=== PATIENT | male | born 1940 | race Caucasian/White ===

== ENCOUNTER 2016-08-04 12:05 | Observation (INO) | payer MEDICARE, OTHER ==
[2016-08-04] MEDS ORDERED: Sodium Chloride 0.9% 10 ML Syringe FLUSH PRN (12:14)
[2016-08-04] MEDS ORDERED: Sodium Chloride 0.9% 2.5 ML Syringe FLUSH PRN (12:14)
[2016-08-04] MEDS ORDERED: 50% Dextrose in Water 50 ML Syringe ONE (12:19)
--- NOTE | 2016-08-04 12:20 | EDM.PDOC ---
ED HPI GENERAL MEDICAL PROBLEM - General Stated Complaint: VERY WEAK/ICE COLD Time Seen by Provider: 08/04/16 12:08 - History of Present Illness INITIAL COMMENTS - FREE TEXT/NARRATIVE: HISTORY AND PHYSICAL: History of present illness: The patient is a 75-year-old male with a history of asthma who follows at [facility] and presents with complaints of feeling "weak in his head" on and off for the last several months. The patient is very vague about his symptoms and says he feels somewhat lightheaded and short of breath with these symptoms but he cannot give me a frequency that it occurs and he has no associated chest pain abdominal pain vomiting fever chills diarrhea or focal weakness in any part of his body. Patient was seen yesterday by Dr. Colbert at [facility] any testing today on his carotids at [facility] and according to the computer he has an MRI scheduled tomorrow here. According to the patient in the ED he says that when he is up moving around he feels more short of breath but has no chest pain and he still feels very weak in his head but no focal weakness. He feels some tingling in his legs but again no weakness. Just laying at rest patient feels improved but still feels somewhat short of breath. He's had no flulike symptoms and has been eating and drinking normally. He complains of some posterior neck pain which is achy in character but no back pain. On my evaluation I asked him what year it was and he said 2009 and what day the week he was in he said Wednesday last Wednesday. According to the this is new since that he just arrived. Review of systems: As per history of present illness and below otherwise all systems reviewed and negative. Past medical history: As per history of present illness and as reviewed below otherwise noncontributory. Surgical history: As per history of present illness and as reviewed below otherwise noncontributory. Social history: No reported history of drug or alcohol abuse. Family history: As per history of present illness and as reviewed below otherwise noncontributory. Physical exam: General: Well-developed thin man who is nontoxic and vital signs have been reviewed by me. Patient ambulated back to the ED without assistance HEENT: Atraumatic, normocephalic, pupils reactive, negative for conjunctival pallor or scleral icterus, mucous membranes moist, throat clear, neck supple, nontender, trachea midline. Lungs: Clear to auscultation, breath sounds equal bilaterally, chest nontender. No work or breathing or sensory muscle use Heart: S1S2, regular rhythm and bradycardic rate, negative for clicks, rubs, or JVD. Abdomen: Soft, nondistended, nontender. Negative for masses or hepatosplenomegaly. Negative for costovertebral tenderness. Pelvis: Stable nontender. Genitourinary: Deferred. Rectal: Deferred. Extremities: Atraumatic, negative for cords or calf pain. Neurovascular unremarkable. No pedal edema Neuro: Awake, alert, oriented to person place but not to time as he was unable to tell me the appropriate year or day of the week. Cranial nerves II through XII unremarkable. Cerebellum unremarkable. Motor and sensory unremarkable throughout. Exam nonfocal. Patient has no slurred speech and a strong throughout all of his extremities with no drift. Dorsi and plantar flexion are intact 5/5 inclusive of the great toe Diagnostics: EKG x 2, CBC CMP INR TSH troponin UA CT scan of the head NIHSS Therapeutics: IV O2 monitor aspirin 1231: I discussed the case with Dr. Aristides Coppola who saw the patient yesterday in his clinic. He said the patient's heart rate was 70 at that time but he did not do an EKG. He said he ordered a carotid studies and the MRI because the patient was exhibiting symptoms of TIAs/episodic confusion and he went to work it out. He said that he does not have the results of the carotids at this time. NIHSS = 1, he had disorientation with time 1405: Case was discussed with Dr. George who accepts the patient for observation admission and I also discussed all testing results with the patient and at bedside and he is agreeable for observation. I've also shown these 2 EKGs to our gas operations analyst . he says that he is unavailable for formal consultation but at this time is not worried from what he has seen. Impression: Episodic confusion and weakness etiology unclear Definitive disposition and diagnosis as appropriate pending reevaluation and review of above. - Related Data Allergies Allergy/AdvReac Type Severity Reaction Status Date / Time No Known Allergies Allergy Verified 08/04/16 12:58 ED ROS GENERAL - Review of Systems Review Of Systems: ROS reveals no pertinent complaints other than HPI. ED EXAM, GENERAL - Physical Exam Exam: See Below (See dictation) Course - Vital Signs Last Recorded V/S: Last Vital Signs Temp 36.5 C 08/04/16 12:54 Pulse 50 L 08/04/16 12:54 Resp 18 08/04/16 12:54 BP 134/79 08/04/16 12:54 Pulse Ox 99 08/04/16 12:54 - Orders/Labs/Meds Orders: Active Orders 24 hr Category Date Time Status Blood Glucose Check, Bedside [RC] ONETIME Care 08/04/16 12:14 Active Cardiac Monitoring [RC] . DIRECTED Care 08/04/16 12:14 Active Communication Order [RC] STAT Care 08/04/16 12:15 Active EKG Documentation Completion [RC] STAT Care 08/04/16 12:14 Active EKG Documentation Completion [RC] STAT Care 08/04/16 13:09 Active Oxygen Therapy, ED [RC] ASDIRECTED Care 08/04/16 12:14 Active Pulse Oximetry [RC] ASDIRECTED Care 08/04/16 12:14 Active Sodium Chloride 0.9% [Saline Flush] Med 08/04/16 12:14 Active 10 ml FLUSH ASDIRECTED PRN Sodium Chloride 0.9% [Saline Flush] Med 08/04/16 12:14 Active 2.5 ml FLUSH ASDIRECTED PRN Saline Lock Insert [OM.PC] Stat Oth 08/04/16 12:14 Ordered Medication Orders Sodium Chloride (Saline Flush) 10 ml FLUSH ASDIRECTED PRN PRN Reason: Keep Vein Open Sodium Chloride (Saline Flush) 2.5 ml FLUSH ASDIRECTED PRN PRN Reason: Keep Vein Open Labs: Laboratory Tests 08/04/16 08/04/16 08/04/16 Range/Units 12:15 12:15 12:15 WBC 4.22 (4.0-11.0) K/uL RBC 5.13 (4.50-5.90) M/uL Hgb 14.2 (13.0-17.0) g/dL Hct 41.8 (38.0-50.0) % MCV 81.5 (80.0-98.0) fL MCH 27.7 (27.0-32.0) pg MCHC 34.0 (31.0-37.0) g/dL RDW Std Deviation 40.4 (28.0-62.0) fl RDW Coeff of Jonathon 14 (11.0-15.0) % Plt Count 125 L (150-400) K/uL MPV 9.20 (7.40-12.00) fL Neut % (Auto) 46.5 L (48.0-80.0) % Lymph % (Auto) 39.3 (16.0-40.0) % [facility] % (Auto) 11.8 (0.0-15.0) % Eos % (Auto) 2.4 (0.0-7.0) % Baso % (Auto) 0.0 (0.0-1.5) % Neut # 2.0 (1.4-5.7) K/uL Lymph # 1.7 (0.6-2.4) K/uL [facility] # 0.5 (0.0-0.8) K/uL Eos # 0.1 (0.0-0.7) K/uL Baso # 0.0 (0.0-0.1) K/uL Nucleated RBC % 0.0 /100WBC Nucleated RBCs # 0 K/uL INR 0.98 (0.86-1.11) Sodium 142 (136-146) mmol/L Potassium 3.7 (3.5-5.1) mmol/L Chloride 114 H (98-110) mmol/L Carbon Dioxide 20 L (21-31) mmol/L BUN 11 (6.0-23.0) mg/dL Creatinine 0.8 (0.6-1.5) mg/dL Est Cr Clr Drug Dosing TNP Estimated GFR (MDRD) > 60.0 ml/min Glucose 65 (60-110) mg/dL POC Glucose (60-110) mg/dL Calcium 9.2 (8.8-10.8) mg/dL Total Bilirubin 0.6 (0.1-1.5) mg/dL AST 25 (5-40) IU/L ALT 17 (8-54) IU/L Alkaline Phosphatase 63 (40-150) Troponin I (0.0-0.29) NG/ML Total Protein 6.3 (6.0-8.0) g/dL Albumin 3.8 (3.4-4.8) g/dL Globulin 2.5 (2.0-3.5) g/dL Albumin/Globulin Ratio 1.5 (1.3-2.8) TSH 3rd Generation 1.06 (0.47-5.0) uIU/mL Urine Color Urine Appearance Urine pH (5.0-8.0) Ur Specific Hampton (1.001-1.035) Urine Protein (NEGATIVE) mg/dL Urine Glucose (UA) (NEGATIVE) mg/dL Urine Ketones (NEGATIVE) mg/dL Urine Occult Blood (NEGATIVE) Urine Nitrite (NEGATIVE) Urine Bilirubin (NEGATIVE) Urine Urobilinogen (<2.0) EU/dL Ur Leukocyte Esterase (NEGATIVE) Urine RBC (0-2/HPF) Urine WBC (0-5/HPF) Ur Epithelial Cells (NONE-FEW) Amorphous Sediment (NEGATIVE) Urine Bacteria (NEGATIVE) 08/04/16 08/04/16 08/04/16 Range/Units 12:15 12:17 12:55 WBC (4.0-11.0) K/uL RBC (4.50-5.90) M/uL Hgb (13.0-17.0) g/dL Hct (38.0-50.0) % MCV (80.0-98.0) fL MCH (27.0-32.0) pg MCHC (31.0-37.0) g/dL RDW Std Deviation (28.0-62.0) fl RDW Coeff of Jonathon (11.0-15.0) % Plt Count (150-400) K/uL MPV (7.40-12.00) fL Neut % (Auto) (48.0-80.0) % Lymph % (Auto) (16.0-40.0) % [facility] % (Auto) (0.0-15.0) % Eos % (Auto) (0.0-7.0) % Baso % (Auto) (0.0-1.5) % Neut # (1.4-5.7) K/uL Lymph # (0.6-2.4) K/uL [facility] # (0.0-0.8) K/uL Eos # (0.0-0.7) K/uL Baso # (0.0-0.1) K/uL Nucleated RBC % /100WBC Nucleated RBCs # K/uL INR (0.86-1.11) Sodium (136-146) mmol/L Potassium (3.5-5.1) mmol/L Chloride (98-110) mmol/L Carbon Dioxide (21-31) mmol/L BUN (6.0-23.0) mg/dL Creatinine (0.6-1.5) mg/dL Est Cr Clr Drug Dosing Estimated GFR (MDRD) ml/min Glucose (60-110) mg/dL POC Glucose 61 (60-110) mg/dL Calcium (8.8-10.8) mg/dL Total Bilirubin (0.1-1.5) mg/dL AST (5-40) IU/L ALT (8-54) IU/L Alkaline Phosphatase (40-150) Troponin I < 0.10 (0.0-0.29) NG/ML Total Protein (6.0-8.0) g/dL Albumin (3.4-4.8) g/dL Globulin (2.0-3.5) g/dL Albumin/Globulin Ratio (1.3-2.8) TSH 3rd Generation (0.47-5.0) uIU/mL Urine Color YELLOW Urine Appearance CLEAR Urine pH 8.0 (5.0-8.0) Ur Specific [place] 1.010 (1.001-1.035) Urine Protein NEGATIVE (NEGATIVE) mg/dL Urine Glucose (UA) NEGATIVE (NEGATIVE) mg/dL Urine Ketones NEGATIVE (NEGATIVE) mg/dL Urine Occult Blood NEGATIVE (NEGATIVE) Urine Nitrite NEGATIVE (NEGATIVE) Urine Bilirubin NEGATIVE (NEGATIVE) Urine Urobilinogen 0.2 (<2.0) EU/dL Ur Leukocyte Esterase NEGATIVE (NEGATIVE) Urine RBC NONE SEEN (0-2/HPF) Urine WBC 0-2 (0-5/HPF) Ur Epithelial Cells FEW (NONE-FEW) Amorphous Sediment RARE (NEGATIVE) Urine Bacteria RARE (NEGATIVE) 08/04/16 Range/Units 13:46 WBC (4.0-11.0) K/uL RBC (4.50-5.90) M/uL Hgb (13.0-17.0) g/dL Hct (38.0-50.0) % MCV (80.0-98.0) fL MCH (27.0-32.0) pg MCHC (31.0-37.0) g/dL RDW Std Deviation (28.0-62.0) fl RDW Coeff of Jonathon (11.0-15.0) % Plt Count (150-400) K/uL MPV (7.40-12.00) fL Neut % (Auto) (48.0-80.0) % Lymph % (Auto) (16.0-40.0) % [facility] % (Auto) (0.0-15.0) % Eos % (Auto) (0.0-7.0) % Baso % (Auto) (0.0-1.5) % Neut # (1.4-5.7) K/uL Lymph # (0.6-2.4) K/uL [facility] # (0.0-0.8) K/uL Eos # (0.0-0.7) K/uL Baso # (0.0-0.1) K/uL Nucleated RBC % /100WBC Nucleated RBCs # K/uL INR (0.86-1.11) Sodium (136-146) mmol/L Potassium (3.5-5.1) mmol/L Chloride (98-110) mmol/L Carbon Dioxide (21-31) mmol/L BUN (6.0-23.0) mg/dL Creatinine (0.6-1.5) mg/dL Est Cr Clr Drug Dosing Estimated GFR (MDRD) ml/min Glucose (60-110) mg/dL POC Glucose 95 (60-110) mg/dL Calcium (8.8-10.8) mg/dL Total Bilirubin (0.1-1.5) mg/dL AST (5-40) IU/L ALT (8-54) IU/L Alkaline Phosphatase (40-150) Troponin I (0.0-0.29) NG/ML Total Protein (6.0-8.0) g/dL Albumin (3.4-4.8) g/dL Globulin (2.0-3.5) g/dL Albumin/Globulin Ratio (1.3-2.8) TSH 3rd Generation (0.47-5.0) uIU/mL Urine Color Urine Appearance Urine pH (5.0-8.0) Ur Specific [place] (1.001-1.035) Urine Protein (NEGATIVE) mg/dL Urine Glucose (UA) (NEGATIVE) mg/dL Urine Ketones (NEGATIVE) mg/dL Urine Occult Blood (NEGATIVE) Urine Nitrite (NEGATIVE) Urine Bilirubin (NEGATIVE) Urine Urobilinogen (<2.0) EU/dL Ur Leukocyte Esterase (NEGATIVE) Urine RBC (0-2/HPF) Urine WBC (0-5/HPF) Ur Epithelial Cells (NONE-FEW) Amorphous Sediment (NEGATIVE) Urine Bacteria (NEGATIVE) Meds: Medications Generic Name Dose Route Start Last Admin Trade Name Freq PRN Reason Stop Dose Admin Sodium Chloride 10 ml 08/04/16 12:14 Saline Flush FLUSH ASDIRECTED PRN Keep Vein Open Sodium Chloride 2.5 ml 08/04/16 12:14 Saline Flush FLUSH ASDIRECTED PRN Keep Vein Open Discontinued Medications Generic Name Dose Route Start Last Admin Trade Name Freq PRN Reason Stop Dose Admin Aspirin 325 mg 08/04/16 13:04 08/04/16 13:30 Aspirin PO 08/04/16 13:05 325 mg ONETIME ONE Administration Dextrose/Water Confirm 08/04/16 12:19 08/04/16 12:24 Dextrose 50% In Water Administered 08/04/16 12:20 25 ml Dose Administration 50 ml .ROUTE .STK-MED ONE Dextrose/Water 25 ml 08/04/16 12:24 08/04/16 12:26 Dextrose 50% In Water IVPUSH 08/04/16 12:25 Not Given ONETIME ONE Departure - Departure Time of Disposition: 14:14 Disposition: Refer to Observation Condition: good Clinical Impression: Confusion - My Orders Last 24 Hours: My Active Orders 08/04/16 12:14 Blood Glucose Check, Bedside [RC] ONETIME Cardiac Monitoring [RC] . DIRECTED EKG Documentation Completion [RC] STAT Oxygen Therapy, ED [RC] ASDIRECTED Pulse Oximetry [RC] ASDIRECTED Sodium Chloride 0.9% [Saline Flush] 10 ml FLUSH ASDIRECTED PRN Sodium Chloride 0.9% [Saline Flush] 2.5 ml FLUSH ASDIRECTED PRN Saline Lock Insert [OM.PC] Stat 08/04/16 12:15 Communication Order [RC] STAT 08/04/16 13:09 EKG Documentation Completion [RC] STAT - Assessment/Plan Last 24 Hours: My Active Orders 08/04/16 12:14 Blood Glucose Check, Bedside [RC] ONETIME Cardiac Monitoring [RC] . DIRECTED EKG Documentation Completion [RC] STAT Oxygen Therapy, ED [RC] ASDIRECTED Pulse Oximetry [RC] ASDIRECTED Sodium Chloride 0.9% [Saline Flush] 10 ml FLUSH ASDIRECTED PRN Sodium Chloride 0.9% [Saline Flush] 2.5 ml FLUSH ASDIRECTED PRN Saline Lock Insert [OM.PC] Stat 08/04/16 12:15 Communication Order [RC] STAT 08/04/16 13:09 EKG Documentation Completion [RC] STAT
[2016-08-04] MEDS ORDERED: 50% Dextrose in Water 50 ML Syringe IVPUSH ONE (12:24)
--- NOTE | 2016-08-04 12:49 | CT ---
EXAMINATION: Non contrast CT head. Coronal and sagittal reformats. HISTORY: Pain FINDINGS: No evidence of intra or extra axial hemorrhage, mass, midline shift, hydrocephalus or edema. There is mild generalized atrophy. No hypoattenuation changes in the major vascular territories to suggest acute infarct. No abnormal intracranial calcifications are detected. No evidence of substantial vascular calcifica tions. Paranasal sinuses and mastoid air cells are well aerated without substantial findings. Orbits and g lobes are preserved. Pituitary fossa appears unremarkable. Calvarium is intact. No evidence of skull fracture. IMPRESSION: 1. No acute intracranial findings. 2. Mild generalized atrophy.
[2016-08-04 12:52] LABS: CHLORIDE,CL 114 mmol/L (98-110); SODIUM,NA 142 mmol/L (136-146)
[2016-08-04] MEDS ORDERED: Aspirin 325 MG Tab PO ONE (13:04)
--- NOTE | 2016-08-04 13:04 | CR ---
EXAMINATION: Portable chest radiograph. HISTORY: Shortness of breath. FINDINGS: The trachea is midline. The cardiomediastinal silhouette is within normal limits. No pulmonary infil trates, effusions or pneumothorax. Mild interstitial prominence. Osseous structures appear unremarkable. IMPRESSION: No acute cardiopulmonary process.
[2016-08-04] MEDS ORDERED: Acetaminophen 325 MG Tab PO PRN (14:54)
[2016-08-04] MEDS ORDERED: Ondansetron 4 MG/2 ML SDV IVPUSH PRN (14:54)
[2016-08-04] MEDS ORDERED: Albuterol 8 GM Inhaler INH PRN (15:00)
[2016-08-04] MEDS ORDERED: Fluticasone Propionate Nasal Spray 16 GM Bottle NASBOTH PRN (15:00)
[2016-08-04] MEDS ORDERED: Albuterol 0.083% 2.5 MG/3 ML Neb Soln INH PRN (15:00)
[2016-08-04] MEDS ORDERED: Albuterol/Ipratropium 3.0-0.5 MG/3 ML Neb Soln NEB PRN (15:00)
--- NOTE | 2016-08-04 15:09 | PCM.HP ---
H&P History of Present Illness - General Date of Service: 08/04/16 Admit Problem/Dx: TIA, intermittently confusion Source of Information: Patient, Family ( at bedside) History Limitations: Reports: No limitations - History of Present Illness Initial Comments - Free Text/Narative: This 75 year old male with pmh of asthma and recent intermittently confusion, presented to the ED today with concerns of generalized weakness and feeling "weak in my head". He saw Dr. Colbert, PCP, yesterday regarding intermittently confusion and generalized weakness, carotid doppler and MRI of brain were ordered. Carotid was done today and MRI was scheduled for tomorrow. Today he just felt more weak and his was worried so they came to the ED. helps a lot with history. He denies any recent URI, no fevers at home, just feeling cold, some SOB secondary to asthma, this is at baseline. He has had no chest pain or abdominal pain, has on and off constipation and diarrhea. He has no focal area of weakness. He is alert and oriented during my interview. 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 No tobacco or alcohol use. In regards to memory issues, his and him report intermittent confusion has been happening for several weeks, and felt like today it was bad and came to the ED. He reports last week he got to his tractor and didn't know what to do or he puts his gloves somewhere and can't find them. He has also started following his around the house more and asking repeated questions about the day or dates and times of events. In the ED labwork WNL. No leukcytosis, glucose 95, TSH 1.06, Na 142, K+ 3.7 BUN 11, Cr. 0.8. Ua negative. Head CT negative for acute intracranial process, CXR negative. EKG noted bradycardia no block noted. He was given ASAHe will be admitted for possible TIA, intermittently confusion and generalized weakness. - Related Data Allergies/Adverse Reactions: Allergies Allergy/AdvReac Type Severity Reaction Status Date / Time No Known Allergies Allergy Verified 08/04/16 12:58 Home Medications: Home Meds Albuterol Sulfate 2.5 mg PO Q6H PRN 08/04/16 [History] Albuterol [IMW: Albuterol HFA] 2 puff INH ASDIRECTED PRN 08/04/16 [History] Aspirin 81 mg PO BRK 08/04/16 [History] Budesonide/Formoterol [Symbicort 160-4.5 MCG] 2 puff INH BID 08/04/16 [History] Calcium Citrate/Vitamin D3 [Calcium Cit-Vit D 315-200] 1 each PO BEDTIME [History] Fish Oil/Borage/Flax/Om3,6,9#1 [Meigs 3-6-9 1,200 mg Softgel] 0 mg PO DAILY [History] Fluticasone Propionate [Flonase] 2 sprays NASBOTH DAILY PRN 08/04/16 [History] Glucosamine/Msm/Chondroitin A [Glucosamine Chondroit MSM Tab] 2 tab PO BID 08/04 [History] Ibuprofen 200 mg PO Q4H PRN 08/04/16 [History] Ipratropium [Atrovent HFA] 2 puff INH BID 08/04/16 [History] Ipratropium/Albuterol Sulfate [Combivent Respimat Inhal [place]] 2 puff INH BID [History] Ipratropium/Albuterol Sulfate [Iprat-Albut 0.5-3(2.5) mg/3 ml] 3 ml NEB Q6H PRN 08/04/16 [History] Multivitamin [Daily [place]] 1 tab PO DAILY 08/04/16 [History] Tamsulosin [Flomax] 0.4 mg PO PCBREAKFAST 08/04/16 [History] Vit C/Aurora Ac/Lut/Copper/ZnOx [Preservision Lutein Softgel] 1 tab PO BID [History] Past Medical History - Past Health History Medical/Surgical History: Denies Medical/Surgical History Cardiovascular History: Reports: None. Denies: Afib, Blood clots/VTE/DVT, High cholesterol, Hypertension, ID Respiratory History: Reports: Asthma Gastrointestinal History: Reports: Chronic constipation Genitourinary History: Reports: BPH Neurological History: Denies: CVA, TIA Endocrine/Metabolic History: Reports: None. Denies: Diabetes, type II, Hypothyroidism - Infectious Disease History Infectious Disease History: Reports: Chicken pox, Measles, Mumps, Shingles - Past Surgical History GI Surgical History: Reports: Hernia, abdominal Social & Family History - Family History Family Medical History: Noncontributory - Tobacco Use Smoking Status *Q: Former Smoker (Quit 40 years ago) - Alcohol Use Alcohol Use History: No - Recreational Drug Use Recreational Drug Use: No - Living Situation & Occupation Living situation: Reports: Occupation: retired H&P Review of Systems - Review of Systems: Review Of Systems: See Below General: Reports: chills, weakness, fatigue. Denies: fever HEENT: Reports: visual changes (some blurred vision). Denies: headaches, post nasal drip, sinus congestion, sore throat, vertigo Pulmonary: Reports: Shortness of Breath (at baseline with asthma). Denies: Wheezing, Cough, Sputum Cardiovascular: Reports: dyspnea on exertion, lightheadedness. Denies: chest pain, syncope Gastrointestinal: Reports: No symptoms. Denies: Abdominal pain, Black stool, Bloody stool, Nausea, Vomiting Genitourinary: Reports: frequency (at nighttime, on Flomax). Denies: dysuria Musculoskeletal: Reports: no symptoms Skin: Reports: no symptoms Psychiatric: Reports: confusion (intermittently) Neurological: Reports: Confusion, Paresthesia (to thighs, which has been happening for sometime, walking helps), Weakness. Denies: Seizure, Syncope, Trouble Speaking Hematologic/Lymphatic: Reports: no symptoms Immunologic: Reports: no symptoms Exam - Exam Exam: See Below - Vital Signs Vital Signs: Last Vital Signs Temp 97.7 F 08/04/16 12:54 Pulse 50 L 08/04/16 12:54 Resp 18 08/04/16 12:54 BP 134/79 08/04/16 12:54 Pulse Ox 99 08/04/16 12:54 Weight: 91.6 kg - Exam General: alert, oriented, cooperative HEENT: PERRLA, Hearing intact, Mucosa moist & pink, Nares patent, Normal nasal septum, Posterior pharynx clear, Conjunctiva clear, EOMI, EACs clear, TMs clear Neck: supple, trachea midline, 2+ carotid pulse wo bruit, full range of motion ( some tenderness noted upon palpation L medial edge of trapezius, no nuchal rigidity, but sore to turn head to R side, pulls on L). No: lymphadenopathy, JVD Lungs: Clear to auscultation, Normal respiratory effort Cardiovascular: regular rhythm, normal S1, normal S2, bradycardia. No: systolic murmur Abdomen: normal bowel sounds, soft. No: organomegaly, tenderness Back Exam: normal inspection, full range of motion, NT Extremities: normal inspection, normal pulses Neurological: cranial nerves intact, reflexes equal bilateral Neuro Extensive - Mental Status: alert, oriented x3, normal mood/affect, normal cognition, memory loss-recent events Neuro Extensive - Motor, Sensory, Reflexes: CN II-XII intact, normal gait, normal reflexes. No: facial palsy (L), facial palsy (R), abnormal Romberg, abnormal finger to nose Psychiatric: alert, normal affect, normal mood - Patient Data Result Diagrams: 08/04/16 12:15 08/04/16 12:15 EKG INTERPRETATION EKG Date: 08/04/16 Rhythm: NSR Rate (beats/min): 48 [place]: normal P-wave: present QRS: normal ST-T: normal QT: normal EKG Interpretation Comments: bradycardia *Q Meaningful Use (ADM) - VTE *Q VTE Criteria *Q: - VTE Risk Assess *Q Each Risk Factor Represents 1 Point: Abnormal Pulmonary Function (COPD) Total Score 1 Point Risk Factors: 1 Each Risk Factor Represents 2 Points: None Total Score 2 Point Risk Factors: 0 Each Risk Factor Represents 3 Points: Age 75 Years or Greater Total Score 3 Point Risk Factors: 3 Each Risk Factor Represents 5 Points: None Total Score 5 Point Risk Factors: 0 Venous Thromboembolism Risk Factor Score *Q: 4 - Stroke *Q Stroke Criteria *Q: - AMI *Q AMI Criteria *Q: - Problem List (1) Generalized weakness SNOMED Code(s): 53322422 ICD Code: R53.1 - WEAKNESS Status: Acute Current Visit: Yes (2) TIA (transient ischemic attack) SNOMED Code(s): 151866888, 796281888 ICD Code: G45.9 - TRANSIENT CEREBRAL ISCHEMIC ATTACK, UNSPECIFIED Status: Acute Current Visit: Yes (3) Confusion SNOMED Code(s): 484706389 ICD Code: R41.0 - DISORIENTATION, UNSPECIFIED Status: Acute Current Visit : Yes (4) Asthma SNOMED Code(s): 374889136 ICD Code: J45.909 - UNSPECIFIED ASTHMA, UNCOMPLICATED Status: Chronic Current Visit: Yes Qualifiers: Asthma severity: moderate persistent Asthma complication type: uncomplicated Qualified Code(s): J45.40 - Moderate persistent asthma, uncomplicated Problem List Initiated/Reviewed/Updated: Yes Orders Last 24hrs: Active Orders 24 hr Category Date Time Status Antiembolic Devices [RC] PER UNIT ROUTINE Care 08/04/16 14:55 Ordered Communication Order [RC] PRN Care 08/04/16 15:02 Ordered Intake and Output [RC] QSHIFT Care 08/04/16 14:55 Ordered Oxygen Therapy [RC] PRN Care 08/04/16 14:54 Ordered Telemetry Monitoring [Cardiac Monitoring] [RC] . Care 08/04/16 14:59 Ordered DIRECTED Up With Assistance [RC] ASDIRECTED Care 08/04/16 14:54 Ordered VTE/DVT Education [RC] PER UNIT ROUTINE Care 08/04/16 14:54 Ordered Vital Signs [RC] Q4H Care 08/04/16 14:54 Ordered PT Evaluation and Treatment [CONS] Routine Cons 08/05/16 08:00 Ordered Heart Healthy Diet [DIET] Diet 08/04/16 Dinner Ordered Ang Head w wo Cont [MR] Routine Exams 08/04/16 14:59 Ordered Ang Neck w wo Cont [MR] Routine Exams 08/04/16 14:59 Ordered Brain w wo Cont [MR] Routine Exams 08/04/16 14:59 Ordered Echo 2D wo Cont [US] Routine Exams 08/04/16 14:54 Ordered LIPID PANEL [CHEM] Routine Lab 08/05/16 05:00 Ordered Acetaminophen [Tylenol] Med 08/04/16 14:54 Ordered 650 mg PO Q4H PRN Albuterol [Proventil Neb Soln] Med 08/04/16 15:00 Ordered 2.5 mg INH Q6H PRN Albuterol [Ventolin HFA] Med 08/04/16 15:00 Ordered 2 puff INH ASDIRECTED PRN Albuterol/Ipratropium [Combivent Respimat] Med 08/04/16 21:00 Ordered 2 puff INH BID Albuterol/Ipratropium [DuoNeb 3.0-0.5 MG/3 ML] Med 08/04/16 15:00 Ordered 3 ml NEB Q6H PRN Aspirin Med 08/05/16 09:00 Ordered 81 mg PO BRK Budesonide/Formoterol Med 08/04/16 21:00 Ordered 2 puff INH BID Calcium Citrate/Vitamin D3 [Calcium Cit-Vit D 315-200] Med 08/04/16 21:00 Ordered 1 each PO BEDTIME Fish Oil/Borage/Flax/Om3,6,9#1 [[place] 3-6-9 1,200 mg Med 08/05/16 09:00 Ordered Softgel] 1 tab PO DAILY Fluticasone Propionate [Flonase] Med 08/04/16 15:00 Ordered 2 sprays NASBOTH DAILY PRN Glucosamine/Msm/Chondroitin A [Glucosamine Chondroit Med 08/04/16 21:00 Ordered MSM Tab] 2 tab PO BID Ipratropium [Atrovent HFA] Med 08/04/16 21:00 Ordered 2 puff INH BID Multivitamins [Tab-A-Aurora] Med 08/05/16 09:00 Ordered 1 tab PO DAILY Ondansetron [Zofran] Med 08/04/16 14:54 Ordered 4 mg IVPUSH Q4H PRN Tamsulosin [Flomax] Med 08/05/16 08:30 Ordered 0.4 mg PO PCBREAKFAST Vit C/[place] Ac/Lut/Copper/ZnOx [Preservision Lutein Med 08/04/16 21:00 Ordered Softgel] 1 tab PO BID Sequential Compression Device [OM.PC] Per Unit Routine Oth 08/04/16 14:55 Ordered Resuscitation Status Routine Resus Stat 08/04/16 14:54 Ordered Medication Orders Acetaminophen (Tylenol) 650 mg PO Q4H PRN PRN Reason: Pain Albuterol (Ventolin Hfa) gm INH ASDIRECTED PRN PRN Reason: Shortness of Breath Albuterol (Proventil Neb Soln) 2.5 mg INH Q6H PRN PRN Reason: Shortness of Breath Albuterol/Ipratropium (Combivent Respimat) gm INH BID MICHELLE Albuterol/Ipratropium (Duoneb 3.0-0.5 Mg/3 Ml) 3 ml NEB Q6H PRN PRN Reason: Shortness of Breath Aspirin (Aspirin) 81 mg PO BRK MICHELLE Fluticasone Propionate (Flonase) gm NASBOTH DAILY PRN PRN Reason: Allergies Ipratropium David (Atrovent Hfa) gm INH BID MICHELLE Multivitamins/Minerals/Vitamin C (Tab-A-Aurora) 1 tab PO DAILY MICHELLE Non-Formulary Medication (Budesonide/Formoterol) 2 puff INH BID MICHELLE Non-Formulary Medication (Calcium Citrate/Vitamin D3 [Calcium Cit-Vit D 315-200] ) 1 each PO BEDTIME MICHELLE Non-Formulary Medication (Fish Oil/Borage/Flax/Om3,6,9#1 [[place] 3-6-9 1,200 Mg Softgel]) 1 tab PO DAILY MICHELLE Non-Formulary Medication (Glucosamine/Msm/Chondroitin A [Glucosamine Chondroit Msm Tab]) 2 tab PO BID MICHELLE Non-Formulary Medication (Vit C/A[place]ora Ac/Lut/Copper/Znox [Preservision Lutein Softgel]) 1 tab PO BID MICHELLE Ondansetron HCl (Zofran) 4 mg IVPUSH Q4H PRN PRN Reason: Nausea Sodium Chloride (Saline Flush) 10 ml FLUSH ASDIRECTED PRN PRN Reason: Keep Vein Open Sodium Chloride (Saline Flush) 2.5 ml FLUSH ASDIRECTED PRN PRN Reason: Keep Vein Open Tamsulosin HCl (Flomax) 0.4 mg PO PCBREAKFAST MICHELLE Assessment/Plan Comment:: This 75 year old male admitted with generalized weakness, TIA like symptoms and confusion 1. TIA like symptoms: Confusion and weakness intermittent. Will monitor on telemetry. Obtain Orthostatic VS, MRI brain, lipid panel and ECHO. I did speak with Dr. Hickey, with no focal deficits right now she agrees with treatment plan. He may follow up with her in clinic if needed, but does not feel like inpatient consultation is needed at this time. I appreciate her assistance. She did recommend obtaining B12 level. Carotid from clinic revealed mild to moderate echogenic atherosclerotic plaque within the right and left internal carotids, L slightly greater than R. Velocities not elevated, bilaterally less than 50% stenosis in R and L internal carotids. 2. Generalized weakness: Consult PT for evaluation and treatment 3. Asthma: Continue all home inhalers VTE: Lovenox Dispo: 1-2 days pending improvement and further imaging studies. PCP Dr. Aristides Colbert, notified per ED physician of admission.
[2016-08-04] MEDS ORDERED: Gadobutrol 10 mMOL/10 ML SDV IVPUSH STA (15:14)
[2016-08-04] MEDS ORDERED: Enoxaparin 40 MG/0.4 ML Syringe SUBCUT SCH (16:00)
[2016-08-04] MEDS: Albuterol/Ipratropium 4 GM Inhalation Spray INH SCH (20:06)
[2016-08-04] MEDS: SYMBICORT INH SCH (20:50)
[2016-08-04] MEDS ORDERED: Calcium Citrate/Vitamin D3 Tablet PO SCH (21:00)
[2016-08-04] MEDS ORDERED: VITE AC PO SCH (21:00)
[2016-08-04] MEDS ORDERED: [UNRECOGNIZED DRUG - OTHER] PO SCH (21:00)
[2016-08-04] MEDS ORDERED: ZNOX PO SCH (21:00)
[2016-08-04] MEDS ORDERED: VIT C PO SCH (21:00)
[2016-08-04] MEDS ORDERED: LUT PO SCH (21:00)
[2016-08-04] MEDS ORDERED: Ipratropium 12.9 GM Inhaler INH SCH (21:00)
[2016-08-04] MEDS ORDERED: COPPER PO SCH (21:00)
[2016-08-05 05:36] LABS: CHLORIDE,CL 111 mmol/L (98-110); SODIUM,NA 143 mmol/L (136-146)
[2016-08-05] MEDS ORDERED: Tamsulosin 0.4 MG Cap.ER PO SCH (08:30)
[2016-08-05] MEDS ORDERED: Fish Oil/Omega-3 Fatty Acids 1 Gm Cap PO SCH (09:00)
[2016-08-05] MEDS ORDERED: Aspirin 81 MG Tab.Chew PO SCH (09:00)
[2016-08-05] MEDS ORDERED: Multivitamin Tab PO SCH (09:00)
[2016-08-05] MEDS: Albuterol/Ipratropium 4 GM Inhalation Spray INH SCH (09:31)
[2016-08-05] MEDS: SYMBICORT INH SCH (09:31)
[2016-08-05 11:17] VITALS: BP 127/69
--- NOTE | 2016-08-05 11:35 | PCM.DCSUM1 ---
Discharge Summary - Hospital Course Brief History: This 75 year old male with pmh of asthma and recent intermittently confusion, presented to the ED 08/04/2016 with concerns of generalized weakness and feeling "weak in my head". He saw Dr. Colbert, PCP, yesterday regarding intermittently confusion and generalized weakness, carotid doppler and MRI of brain were ordered. Carotid was done today and MRI was scheduled for tomorrow. Today he just felt more weak and his was worried so they came to the ED. helps a lot with history. He denies any recent URI , no fevers at home, just feeling cold, some SOB secondary to asthma, this is at baseline. He has had no chest pain or abdominal pain, has on and off constipation and diarrhea. He has no focal area of weakness. He is alert and oriented during my interview. 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 No tobacco or alcohol use. In regards to memory issues, his and him report intermittent confusion has been happening for several weeks, and felt like today it was bad and came to the ED. He reports last week he got to his tractor and didn't know what to do or he puts his gloves somewhere and can't find them. He has also started following his around the house more and asking repeated questions about the day or dates and times of events. In the ED labwork WNL. No leukcytosis, glucose 95, TSH 1.06, Na 142, K+ 3.7 BUN 11, Cr. 0.8. Ua negative. Head CT negative for acute intracranial process, CXR negative. EKG noted bradycardia no block noted. He was given ASA in the ED. Was admitted for possible TIA, intermittently confusion and generalized weakness. - Discharge Data Discharge Date: 08/05/16 Discharge Disposition: Home, Self-Care 01 Condition: Good - Discharge Diagnosis/Problem(s) (1) Generalized weakness SNOMED Code(s): 07454937 ICD Code: R53.1 - WEAKNESS Status: Acute Current Visit: Yes (2) Confusion SNOMED Code(s): 733382216 ICD Code: R41.0 - DISORIENTATION, UNSPECIFIED Status: Acute Current Visit : Yes (3) Asthma SNOMED Code(s): 805694370 ICD Code: J45.909 - UNSPECIFIED ASTHMA, UNCOMPLICATED Status: Chronic Current Visit: Yes Qualifiers: Asthma severity: moderate persistent Asthma complication type: uncomplicated Qualified Code(s): J45.40 - Moderate persistent asthma, uncomplicated - Patient Summary/Data Consults: Consultations 08/05/16 08:00 PT Evaluation and Treatment [CONS] Routine - Patient Instructions Diet: Heart Healthy Diet Activity: As Tolerated Showering/Bathing: May Shower Notify Provider of: Fever, Increased Pain, Swelling and Redness, Drainage, Nausea and/or Vomiting - Discharge Plan Home Medications: Home Meds Albuterol Sulfate 2.5 mg IH Q6H PRN 08/04/16 [History] Albuterol [IMW: Albuterol HFA] 2 puff INH ASDIRECTED PRN 08/04/16 [History] Aspirin 81 mg PO BRK 08/04/16 [History] Budesonide/Formoterol [Symbicort 160-4.5 MCG] 2 puff INH BID 08/04/16 [History] Calcium Citrate/Vitamin D3 [Calcium Cit-Vit D 315-200] 1 each PO BEDTIME [History] Fish Oil/Borage/Flax/Om3,6,9#1 [[place] 3-6-9 1,200 mg Softgel] 0 mg PO DAILY [History] Fluticasone Propionate [Flonase] 2 sprays NASBOTH DAILY PRN 08/04/16 [History] Glucosamine/Msm/Chondroitin A [Glucosamine Chondroit MSM Tab] 2 tab PO BID 08/04 [History] Ibuprofen 200 mg PO Q4H PRN 08/04/16 [History] Ipratropium [Atrovent HFA] 2 puff INH BID 08/04/16 [History] Ipratropium/Albuterol Sulfate [Combivent Respimat Inhal [place]] 2 puff INH BID [History] Ipratropium/Albuterol Sulfate [Iprat-Albut 0.5-3(2.5) mg/3 ml] 3 ml NEB Q6H PRN 08/04/16 [History] Multivitamin [Daily [place]] 1 tab PO DAILY 08/04/16 [History] Tamsulosin [Flomax] 0.4 mg PO PCBREAKFAST 08/04/16 [History] Vit C/[place] Ac/Lut/Copper/ZnOx [Preservision Lutein Softgel] 1 tab PO BID [History] Referrals: Christal Hickey MD [Physician] - (follow up next available appointment) Aristides Colbert MD [Primary Care Provider] - (has appointment on Wednesday) - Discharge Summary/Plan Comment DC Time >30 min.: No Discharge Summary/Plan Comment: Discharge Diagnoses: Intermittent confusion Exercise induced fatigue Asthma Ciro was admitted and evaluated for possible TIA, likely tingling to legs and fatigue linked to exercise. Had these symptoms after ambulating and exercising. They are intermittent and do not last long. He was observed on telemetry, HR SB to SR. No symptomatic bradycardia noted. He was up ambulating in hallway with no symptoms and tolerated this well with no hypoxia, ranged from 94-98% on RA. MRI/MRA of brain showed no acute pathology, noevidence of mass hemorrhage or recent infarct, benign 25 x15 mm arachnoid cyst in the left middle cranial fossa , slight paranasal sinus inflammatory changes, MRA unremarkable. ECHO is pending on discharge. patient and request referral to neurology, will set appointment up with Dr. Hickey for further evaluation. Patient has been alert and oriented during stay and is feeling much better, he is ambulating well with no symptoms and has had no confusion episodes. Tingling to legs has been absent during stay. and patient agree with current treatment plan. Continue with follow up with Dr. Colbert, will fax imaging reports to his office when available. Ciro is to return to clinic or ED if concerns arise. No changes to home medications at this time. - General Info Date of Service: 08/05/16 Admission Dx/Problem (Free Text: TIA, intermittently confusion Subjective Update: Alert and oriented. Standing and ambulating during talk with no noted gait instability. He denies chest pain, SOB, dizziness or lightheadedness and no focal symptoms. reports he is looking really good this morning. Functional Status: Reports: tolerating diet, ambulating, urinating - Review of Systems General: Reports: No Symptoms. Denies: Fever HEENT: Reports: no symptoms. Denies: sinus congestion, sore throat Pulmonary: Reports: no symptoms. Denies: shortness of breath Cardiovascular: Reports: No Symptoms. Denies: Chest Pain, Palpitations, Lightheadedness Gastrointestinal: Reports: No symptoms. Denies: Abdominal pain, Nausea, Vomiting Genitourinary: Reports: no symptoms. Denies: dysuria, frequency, burning Musculoskeletal: Reports: no symptoms Skin: Reports: no symptoms Neurological: Reports: No Symptoms. Denies: Confusion, Dizziness, Weakness, Gait Disturbance Psychiatric: Denies: confusion - Patient Data Vitals - Most Recent: Last Vital Signs Temp 97.5 F 08/05/16 11:00 Pulse 65 08/05/16 11:00 Resp 18 08/05/16 11:00 BP 127/69 08/05/16 11:00 Pulse Ox 97 08/05/16 11:00 Orthostatic Blood Pressure [ 107/66 Standing] Orthostatic Blood Pressure [ 107/71 Sitting] Orthostatic Blood Pressure [ 120/59 Supine] Weight - Most Recent: 91.6 kg I&O - Last 24 hours: Intake & Output 08/04/16 08/05/16 08/05/16 22:59 06:59 14:59 Intake Total 200 550 Output Total 150 Balance 200 400 Lab Results - Last 24 hrs: Laboratory Results - last 24 hr 08/05/16 08/05/16 08/05/16 Range/Units 04:32 04:32 04:32 WBC 4.30 (4.0-11.0) K/uL RBC 4.91 (4.50-5.90) M/uL Hgb 13.6 (13.0-17.0) g/dL Hct 40.5 (38.0-50.0) % MCV 82.5 (80.0-98.0) fL MCH 27.7 (27.0-32.0) pg MCHC 33.6 (31.0-37.0) g/dL RDW Std Deviation 41.3 (28.0-62.0) fl RDW Coeff of Jonathon 14 (11.0-15.0) % Plt Count 134 L (150-400) K/uL MPV 9.10 (7.40-12.00) fL Neut % (Auto) 44.9 L (48.0-80.0) % Lymph % (Auto) 41.2 H (16.0-40.0) % [place] % (Auto) 10.2 (0.0-15.0) % Eos % (Auto) 3.7 (0.0-7.0) % Baso % (Auto) 0.0 (0.0-1.5) % Neut # 1.9 (1.4-5.7) K/uL Lymph # 1.8 (0.6-2.4) K/uL [place] # 0.4 (0.0-0.8) K/uL Eos # 0.2 (0.0-0.7) K/uL Baso # 0.0 (0.0-0.1) K/uL Nucleated RBC % 0.0 /100WBC Nucleated RBCs # 0 K/uL Sodium 143 (136-146) mmol/L Potassium 3.9 (3.5-5.1) mmol/L Chloride 111 H (98-110) mmol/L Carbon Dioxide 24 (21-31) mmol/L BUN 12 (6.0-23.0) mg/dL Creatinine 0.9 (0.6-1.5) mg/dL Est Cr Clr Drug Dosing 82.45 mL/min Estimated GFR (MDRD) > 60.0 ml/min Glucose 82 (60-110) mg/dL Calcium 9.1 (8.8-10.8) mg/dL Phosphorus 4.5 (2.4-4.7) mg/dL Magnesium 1.6 (1.5-2.3) mEq/L Triglycerides 100 (10-190) mg/dL Cholesterol 179 (131-240) mg/dL LDL Cholesterol, Calc 120 (60-180) mg/dL VLDL Cholesterol 20 (5-55) mg/dL HDL Cholesterol 39 L (40-80) mg/dL Cholesterol/HDL Ratio 4.6 (3.3-6.0) Med Orders - Current: Current Medications Acetaminophen (Tylenol) 650 mg PO Q4H PRN PRN Reason: Pain Albuterol (Ventolin Hfa) 0 gm INH ASDIRECTED PRN PRN Reason: Shortness of Breath Albuterol (Proventil Neb Soln) 2.5 mg INH Q6H PRN PRN Reason: Shortness of Breath Albuterol/Ipratropium (Combivent Respimat) 0 gm INH BID MICHELLE Last Admin: 08/05/16 09:31 Dose: 2 inhalation Albuterol/Ipratropium (Duoneb 3.0-0.5 Mg/3 Ml) 3 ml NEB Q6H PRN PRN Reason: Shortness of Breath Aspirin (Aspirin) 81 mg PO BRK [facility] Last Admin: 08/05/16 09:21 Dose: 81 mg Calcium Citrate (Calcitrate + Vit D Cap (315 Mg/250 Units)) 1 each PO BEDTIME [facility] Last Admin: 08/04/16 20:57 Dose: 1 each Enoxaparin Sodium (Lovenox) 40 mg SUBCUT Q24H [facility] Last Admin: 08/04/16 17:05 Dose: 40 mg Fish Oil (Fish Oil) 1 gm PO DAILY [facility] Last Admin: 08/05/16 09:21 Dose: 1 gm Fluticasone Propionate (Flonase) 0 gm NASBOTH DAILY PRN PRN Reason: Allergies Multivitamins/Minerals/Vitamin C (Tab-A-[place]) 1 tab PO DAILY [facility] Last Admin: 08/05/16 09:21 Dose: 1 tab Ondansetron HCl (Zofran) 4 mg IVPUSH Q4H PRN PRN Reason: Nausea Symbicort 160-4.5mcg (Inhaler) 0 each INH BID [facility] Last Admin: 08/05/16 09:31 Dose: 1 each Sodium Chloride (Saline Flush) 10 ml FLUSH ASDIRECTED PRN PRN Reason: Keep Vein Open Sodium Chloride (Saline Flush) 2.5 ml FLUSH ASDIRECTED PRN PRN Reason: Keep Vein Open Tamsulosin HCl (Flomax) 0.4 mg PO PCBREAKFAST [facility] Last Admin: 08/05/16 09:21 Dose: 0.4 mg Discontinued Medications Aspirin (Aspirin) 325 mg PO ONETIME ONE Stop: 08/04/16 13:05 Last Admin: 08/04/16 13:30 Dose: 325 mg Dextrose/Water (Dextrose 50% In Water) Confirm Administered Dose 50 ml .ROUTE .STK-MED ONE Stop: 08/04/16 12:20 Last Admin: 08/04/16 12:24 Dose: 25 ml Dextrose/Water (Dextrose 50% In Water) 25 ml IVPUSH ONETIME ONE Stop: 08/04/16 12:25 Last Admin: 08/04/16 12:26 Dose: Not Given Gadobutrol (Gadavist) 10 ml IVPUSH ONETIME STA Stop: 08/04/16 15:15 Last Admin: 08/04/16 16:07 Dose: 9 ml Ipratropium [place] (Atrovent Hfa) gm INH BID [facility] Non-Formulary Medication (Glucosamine/Msm/Chondroitin A [Glucosamine Chondroit Msm Tab]) 2 tab PO BID MICHELLE Non-Formulary Medication (Vit C/[place] Ac/Lut/Copper/Znox [Preservision Lutein Softgel]) 1 tab PO BID [facility] - Exam General: Reports: alert, oriented, cooperative HEENT: Reports: Pupils equal, Pupils reactive, EOMI, Mucous membr. moist/pink Neck: Reports: supple Lungs: Reports: Clear to auscultation, Normal respiratory effort Cardiovascular: Reports: Regular Rate, Regular Rhythm, No Murmurs Abdomen: Reports: bowel sounds present, soft, no tenderness, no distension Extremities: Reports: no edema, normal pulses Psy/Mental Status: Reports: alert, normal affect, normal mood *Q Meaningful Use (DIS) - VTE *Q VTE Criteria *Q: - Stroke *Q Stroke Criteria *Q: - AMI *Q AMI Criteria *Q:
--- NOTE | 2016-08-05 14:31 | MR ---
EXAM DATE: 08/04/16 PATIENT'S AGE: 75 Patient: DIONNA SORIA Facility: [place], [place] Site . Site : 1940 Study: MRI Head W/ and W/O Cont [id number]/21/2017 4:59:06 PM Ordering Physician: Anirudh Mathew Final Report: Indication: Confusion. TIA. Technique: MRI Head: Performed before and after IV gadolinium. MRA Head: Performed without IV contrast. Comparison: None available. Findings: MRI Head: No evidence for recent or remote infarct or hemorrhage. No intracranial mass lesion. No ventricular obstruction. No signal changes in the brain parenchyma. No abnormal contrast enhancement involving the brain parenchyma, meninges, calvarium or skull base. There is a benign arachnoid cyst along the anteromedial margin of the left middle cranial fossa, usually asymptomatic and incidental. Mild symmetric cerebral atrophy. Grossly normal flow voids are maintained in the directly imaged intracranial vascular structures. The craniovertebral junction is unremarkable, with a patent foramen magnum. Both temporal bones are clear. There is slight membrane thickening in the ethmoid paranasal sinuses. MRA Head: No occlusion/filling defect or acquired arterial stenosis identified. No aneurysm or vascular malformation seen. Impression: MRI Head: 1. No acute pathology identified. No evidence for mass effect, hemorrhage or recent infarct. 2. Benign 25 x 15 mm arachnoid cyst in the left middle cranial fossa. 3. Slight paranasal sinus inflammatory change. MRA Head: Unremarkable exam. Dictated by Ulises Georges MD @ Aug 04 2016 5:04PM (Electronic Signature) Report Signed by Proxy and Original Signed Document filed in the Medical Record. MTDD
--- NOTE | 2016-08-10 14:32 | MR ---
EXAM DATE: 08/04/16 PATIENT'S AGE: 75 Patient: DIONNA SORIA Facility: [facility], [facility], [place] Site . Site : 1940 Study: MRI-Head Angio [id number]/21/2017 5:06:42 PM Ordering Physician: Anirudh Mathew Final Report: Indication: Confusion. TIA. Technique: MRI Head: Performed before and after IV gadolinium. MRA Head: Performed without IV contrast. Comparison: None available. Findings: MRI Head: No evidence for recent or remote infarct or hemorrhage. No intracranial mass lesion. No ventricular obstruction. No signal changes in the brain parenchyma. No abnormal contrast enhancement involving the brain parenchyma, meninges, calvarium or skull base. There is a benign arachnoid cyst along the anteromedial margin of the left middle cranial fossa, usually asymptomatic and incidental. Mild symmetric cerebral atrophy. Grossly normal flow voids are maintained in the directly imaged intracranial vascular structures. The craniovertebral junction is unremarkable, with a patent foramen magnum. Both temporal bones are clear. There is slight membrane thickening in the ethmoid paranasal sinuses. MRA Head: No occlusion/filling defect or acquired arterial stenosis identified. No aneurysm or vascular malformation seen. Impression: MRI Head: 1. No acute pathology identified. No evidence for mass effect, hemorrhage or recent infarct. 2. Benign 25 x 15 mm arachnoid cyst in the left middle cranial fossa. 3. Slight paranasal sinus inflammatory change. MRA Head: Unremarkable exam. tt/Dictated by: Ulises Georges MD @ 08/04/2016 5:16:00 PM Signed by: Ulises Georges MD @08/07/2016 6:22:59 PM (Electronic Signature) Report Signed by Proxy and Original Signed Document filed in the Medical Record. [facility]
--- NOTE | 2016-08-13 14:04 | ECHO ---
The echocardiogram report can be seen in this patient's EMR in the Reports section. HESHAM
== END 2016-08-05 13:16 | disposition home or self-care (01) ==
LOC: MW.ED 12:05 → MW.MS 14:26
PROVIDERS: ADMIT Internal Medicine; ATTEND Internal Medicine
DX: R41.0 Disorientation, unspecified (principal); R53.1 Weakness; R00.1 Bradycardia, unspecified; N40.0 Benign prostatic hyperplasia without lower urinary tract symptoms; K59.00 Constipation, unspecified; Z79.82 Long term (current) use of aspirin; Z79.899 Other long term (current) drug therapy
CPT/HCPCS: 36415; 70450; 70544; 70553; 71010; 80048; 80053; 80061; 81001; 82607; 82962; 83735; 84100; 84443; 84484; 85025; 85610; 93005; 93306; 94640; 94664; 96372; 96374; 97161; 99285; A9270; A9585; G0378; J1650; J7060

== ENCOUNTER → 2016-08-24 | Outpatient (CLI) | payer MEDICARE, OTHER ==
[2016-08-24 10:16] LABS: CHLORIDE,CL 111 mmol/L (98-110); SODIUM,NA 145 mmol/L (136-146)
== END ==
LOC: MW.CHNEURO 09:28
PROVIDERS: ATTEND Psychiatry & Neurology Neuromuscular Medicine
DX: R20.9 Unspecified disturbances of skin sensation (principal); R41.3 Other amnesia; M54.2 Cervicalgia; G47.30 Sleep apnea, unspecified
CPT/HCPCS: 36415; 80048; 82525; 82607; 83921; 84165; 86592; 99205

== ENCOUNTER → 2016-08-28 | Outpatient (CLI) | payer MEDICARE, OTHER ==
[~2016-08-28] MED LIST: Gadobutrol 7.5 mMOL/7.5 ML SDV IVPUSH STA
--- NOTE | 2016-08-31 09:41 | MR ---
EXAM DATE: 08/28/16 PATIENT'S AGE: 75 Patient: DIONNA SORIA Facility: [place], [place] Site . Site : 1940 Study: MRI Spine Cervical [id number]/14/[id number] 5:31:54 PM Ordering Physician: Edelmira Siegel Final Report: Indication: Neck pain. Technique: Noncontrast sagittal T1-T2 STIR and axial GRE sequences are provided. No comparisons. Findings: Mild edema within the left C5-6 facet and periarticular soft tissues. Remainder of the cervical spine demonstrates normal overall stature, alignment and intrinsic marrow signal. No abnormal signal cervical cord. C2-3: Unremarkable. C3-4: Moderate left-sided facet arthropathy and uncovertebral joint hypertrophy results in mild left and no right foraminal no central canal narrowing. C4-5: Moderate left-sided facet arthropathy results in no central canal or foramina. C4-5: Mild disk osteophyte complex effaces the ventral thecal sac and results in mild central canal narrowing. Uncovertebral joint facet arthropathy results in mild left and mild to moderate right foraminal narrowing. C6-7: No central canal or foraminal narrowing. C7-T1: No central canal or foraminal narrowing. Impression: 1. Mild edema within the left C5-6 facet and periarticular soft tissue that may represent localized inflammation or reactive changes. 2. Mild to moderate right C5-6 foraminal narrowing and mild central canal narrowing. 3. Milder degenerative changes within the remainder of the cervical spine as outlined above. Dictated by Lan Walters MD @ Aug 29 2016 9:00AM (Electronic Signature) Report Signed by Proxy and Original Signed Document filed in the Medical Record. [facility]ESHAM
== END ==
LOC: MW.MRI 16:19
PROVIDERS: ATTEND Psychiatry & Neurology Neuromuscular Medicine
DX: M54.2 Cervicalgia (principal)
CPT/HCPCS: 72156; A9585

== ENCOUNTER → 2016-09-14 | Outpatient (CLI) | payer MEDICARE, OTHER | LOC: MW.CHIM 08:00 | PROVIDERS: ATTEND Internal Medicine | DX: NODX10 (principal) ==

== ENCOUNTER → 2016-09-28 | Outpatient (CLI) | payer MEDICARE, OTHER | LOC: MW.CHNEURO 08:00 | PROVIDERS: ATTEND Psychiatry & Neurology Neuromuscular Medicine | DX: R41.3 Other amnesia (principal); R20.9 Unspecified disturbances of skin sensation | CPT/HCPCS: 99214 ==

== ENCOUNTER → 2016-09-30 | Outpatient (CLI) | payer MEDICARE, OTHER | LOC: MW.CHIM 08:00 | PROVIDERS: ATTEND Internal Medicine | DX: R00.2 Palpitations (principal); R07.9 Chest pain, unspecified; J45.909 Unspecified asthma, uncomplicated; F03.90 Unspecified dementia, unspecified severity, without behavioral disturbance, psychotic disturbance, mood disturbance, and anxiety | CPT/HCPCS: 99204 ==

== ENCOUNTER → 2016-10-01 | Outpatient (CLI) | payer MEDICARE, OTHER | LOC: MW.RT 14:32 | PROVIDERS: ADMIT Internal Medicine; ATTEND Internal Medicine | DX: R53.1 Weakness (principal); R41.0 Disorientation, unspecified; R00.1 Bradycardia, unspecified; N40.0 Benign prostatic hyperplasia without lower urinary tract symptoms; K59.00 Constipation, unspecified; Z79.82 Long term (current) use of aspirin; Z79.899 Other long term (current) drug therapy | CPT/HCPCS: 93270 ==

== ENCOUNTER 2016-11-04 22:03 | Observation (INO) | payer MEDICARE, OTHER ==
[2016-11-04] MEDS ORDERED: Albuterol/Ipratropium 3.0-0.5 MG/3 ML Neb Soln NEB ONE (22:13)
--- NOTE | 2016-11-04 22:22 | EDM.PDOC ---
ED HPI GENERAL MEDICAL PROBLEM - General Chief Complaint: Chest Pain Stated Complaint: CHEST PAIN Time Seen by Provider: 11/04/16 22:11 - History of Present Illness INITIAL COMMENTS - FREE TEXT/NARRATIVE: HISTORY AND PHYSICAL: History of present illness: Patient is 75-year-old white male whose been followed by cardiology for a low heart rate who reportedly failed a stress test and was put on a Holter monitor as an outpatient and does not know the results as of yet patient states uses an inhaler at home and tonjake had an episode of left-sided chest pain this was approximately 5 PM it was self-limited and he now comes in with generalized weakness and right upper back pain he denies nausea vomiting palpitations or diaphoresis he is quite anxious upon arrival and is here at his 's request Review of systems: As per history of present illness and below otherwise all systems reviewed and negative. Past medical history: As per history of present illness and as reviewed below otherwise noncontributory. Surgical history: As per history of present illness and as reviewed below otherwise noncontributory. Social history: No reported history of drug or alcohol abuse. Family history: As per history of present illness and as reviewed below otherwise noncontributory. Physical exam: HEENT: Atraumatic, normocephalic, pupils reactive, negative for conjunctival pallor or scleral icterus, mucous membranes moist, throat clear, neck supple, nontender, trachea midline. Lungs: Rare end expiratory wheeze left upper chest, breath sounds equal bilaterally, chest nontender. Heart: S1S2, regular, negative for clicks, rubs, or JVD. Abdomen: Soft, nondistended, nontender. Negative for masses or hepatosplenomegaly. Negative for costovertebral tenderness. Pelvis: Stable nontender. Genitourinary: Deferred. Rectal: Deferred. Extremities: Atraumatic, negative for cords or calf pain. Neurovascular unremarkable. Neuro: Awake, alert, oriented. Cranial nerves II through XII unremarkable. Cerebellum unremarkable. Motor and sensory unremarkable throughout. Exam nonfocal. Diagnostics: CBC CMP PT/INR troponin chest x-ray EKG Therapeutics: IV O2 monitor albuterol ipratropium nebulized Impression: #1 chest pain #2 generalized weakness Definitive disposition and diagnosis as appropriate pending reevaluation and review of above. Posterior Neck Pain Score (Numeric/FACES): 6 - Related Data Allergies Allergy/AdvReac Type Severity Reaction Status Date / Time No Known Allergies Allergy Verified 11/04/16 22:44 Home Meds: Home Meds Albuterol Sulfate 2.5 mg IH Q6H PRN 08/04/16 [History] Albuterol [IMW: Albuterol HFA] 2 puff INH ASDIRECTED PRN 08/04/16 [History] Aspirin 81 mg PO BRK 08/04/16 [History] Budesonide/Formoterol [Symbicort 160-4.5 MCG] 2 puff INH BID 08/04/16 [History] Calcium Citrate/Vitamin D3 [Calcium Cit-Vit D 315-200] 1 each PO BEDTIME [History] Fish Oil/Borage/Flax/Om3,6,9#1 [[place] 3-6-9 1,200 mg Softgel] 0 mg PO DAILY [History] Fluticasone Propionate [Flonase] 2 sprays NASBOTH DAILY PRN 08/04/16 [History] Glucosamine/Msm/Chondroitin A [Glucosamine Chondroit MSM Tab] 2 tab PO BID 08/04 [History] Ibuprofen 200 mg PO Q4H PRN 08/04/16 [History] Ipratropium [Atrovent HFA] 2 puff INH BID 08/04/16 [History] Ipratropium/Albuterol Sulfate [Combivent Respimat Inhal [place]] 2 puff INH BID [History] Ipratropium/Albuterol Sulfate [Iprat-Albut 0.5-3(2.5) mg/3 ml] 3 ml NEB Q6H PRN 08/04/16 [History] Multivitamin [Daily [place]] 1 tab PO DAILY 08/04/16 [History] Tamsulosin [Flomax] 0.4 mg PO PCBREAKFAST 08/04/16 [History] Vit C/[place] Ac/Lut/Copper/ZnOx [Preservision Lutein Softgel] 1 tab PO BID [History] Past Medical History - Past Health History Medical/Surgical History: Denies Medical/Surgical History Cardiovascular History: Reports: None. Denies: Afib, Blood Clots/VTE/DVT, High Cholesterol, Hypertension, [place] Respiratory History: Reports: Asthma Gastrointestinal History: Reports: Chronic Constipation Genitourinary History: Reports: BPH Endocrine/Metabolic History: Reports: None. Denies: Diabetes, Type II, Hypothyroidism - Infectious Disease History Infectious Disease History: Reports: Chicken Pox, Measles, Mumps, Shingles - Past Surgical History GI Surgical History: Reports: Hernia, Abdominal Social & Family History - Family History Family Medical History: Noncontributory - Tobacco Use Smoking Status *Q: Former Smoker (Quit 40 years ago) Used Tobacco, but Quit: Yes Month Tobacco Last Used: 1978 - Caffeine Use Caffeine Use: Reports: Coffee - Recreational Drug Use Recreational Drug Use: No - Living Situation & Occupation Living situation: Reports: Occupation: Retired ED ROS GENERAL - Review of Systems Review Of Systems: ROS reveals no pertinent complaints other than HPI. ED EXAM, GENERAL - Physical Exam Exam: See Below (See dictation) Course - Vital Signs Last Recorded V/S: Last Vital Signs Temp 36.7 C 11/04/16 22:08 Pulse 60 11/04/16 22:40 Resp 24 H 11/04/16 22:40 BP 107/56 L 11/04/16 22:40 Pulse Ox 99 11/04/16 22:40 - Orders/Labs/Meds Orders: Active Orders 24 hr Category Date Time Status Patient Status [ADT] Stat ADT 11/04/16 23:20 Ordered EKG Documentation Completion [RC] STAT Care 11/04/16 22:39 Active RT Aerosol Therapy [RC] ASDIRECTED Care 11/04/16 22:13 Active Chest 2V [CR] Stat Exams 11/04/16 22:19 Taken Labs: Laboratory Tests 11/04/16 11/04/16 11/04/16 Range/Units 22:00 22:00 22:00 WBC 6.10 (4.0-11.0) K/uL RBC 4.73 (4.50-5.90) M/uL Hgb 13.1 (13.0-17.0) g/dL Hct 38.0 (38.0-50.0) % MCV 80.3 (80.0-98.0) fL MCH 27.7 (27.0-32.0) pg MCHC 34.5 (31.0-37.0) g/dL RDW Std Deviation 41.6 (28.0-62.0) fl RDW Coeff of Jonathon 14 (11.0-15.0) % Plt Count 160 (150-400) K/uL MPV 8.70 (7.40-12.00) fL Neut % (Auto) 47.4 L (48.0-80.0) % Lymph % (Auto) 38.4 (16.0-40.0) % [place] % (Auto) 11.0 (0.0-15.0) % Eos % (Auto) 3.0 (0.0-7.0) % Baso % (Auto) 0.2 (0.0-1.5) % Neut # (Auto) 2.9 (1.4-5.7) K/uL Lymph # (Auto) 2.3 (0.6-2.4) K/uL [place] # (Auto) 0.7 (0.0-0.8) K/uL Eos # (Auto) 0.2 (0.0-0.7) K/uL Baso # (Auto) 0.0 (0.0-0.1) K/uL Nucleated RBC % 0.0 /100WBC Nucleated RBCs # 0 K/uL INR 0.98 (0.86-1.11) Sodium 140 (136-146) mmol/L Potassium 4.3 (3.5-5.1) mmol/L Chloride 111 H (98-110) mmol/L Carbon Dioxide 18 L (21-31) mmol/L BUN 14 (6.0-23.0) mg/dL Creatinine 1.0 (0.6-1.5) mg/dL Est Cr Clr Drug Dosing 74.21 mL/min Estimated GFR (MDRD) > 60.0 ml/min Glucose 97 (60-110) mg/dL Calcium 8.9 (8.8-10.8) mg/dL Total Bilirubin 0.5 (0.1-1.5) mg/dL AST 51 H (5-40) IU/L ALT 23 (8-54) IU/L Alkaline Phosphatase 79 (40-150) Troponin I (0.0-0.29) NG/ML Total Protein 6.5 (6.0-8.0) g/dL Albumin 3.6 (3.4-4.8) g/dL Globulin 2.9 (2.0-3.5) g/dL Albumin/Globulin Ratio 1.2 L (1.3-2.8) 11/04/16 Range/Units 22:00 WBC (4.0-11.0) K/uL RBC (4.50-5.90) M/uL Hgb (13.0-17.0) g/dL Hct (38.0-50.0) % MCV (80.0-98.0) fL MCH (27.0-32.0) pg MCHC (31.0-37.0) g/dL RDW Std Deviation (28.0-62.0) fl RDW Coeff of Jonathon (11.0-15.0) % Plt Count (150-400) K/uL MPV (7.40-12.00) fL Neut % (Auto) (48.0-80.0) % Lymph % (Auto) (16.0-40.0) % [place] % (Auto) (0.0-15.0) % Eos % (Auto) (0.0-7.0) % Baso % (Auto) (0.0-1.5) % Neut # (Auto) (1.4-5.7) K/uL Lymph # (Auto) (0.6-2.4) K/uL [place] # (Auto) (0.0-0.8) K/uL Eos # (Auto) (0.0-0.7) K/uL Baso # (Auto) (0.0-0.1) K/uL Nucleated RBC % /100WBC Nucleated RBCs # K/uL INR (0.86-1.11) Sodium (136-146) mmol/L Potassium (3.5-5.1) mmol/L Chloride (98-110) mmol/L Carbon Dioxide (21-31) mmol/L BUN (6.0-23.0) mg/dL Creatinine (0.6-1.5) mg/dL Est Cr Clr Drug Dosing mL/min Estimated GFR (MDRD) ml/min Glucose (60-110) mg/dL Calcium (8.8-10.8) mg/dL Total Bilirubin (0.1-1.5) mg/dL AST (5-40) IU/L ALT (8-54) IU/L Alkaline Phosphatase (40-150) Troponin I < 0.10 (0.0-0.29) NG/ML Total Protein (6.0-8.0) g/dL Albumin (3.4-4.8) g/dL Globulin (2.0-3.5) g/dL Albumin/Globulin Ratio (1.3-2.8) Meds: Medications Discontinued Medications Generic Name Dose Route Start Last Admin Trade Name Freq PRN Reason Stop Dose Admin Albuterol/Ipratropium 3 ml 11/04/16 22:13 11/04/16 22:22 Duoneb 3.0-0.5 Mg/3 Ml NEB 11/04/16 22:14 3 ml ONETIME ONE Administration Departure - Departure Time of Disposition: 23:21 Disposition: Refer to Observation Condition: Good Clinical Impression: Chest pain, Generalized weakness - Discharge Information Forms: ED Department Discharge - My Orders Last 24 Hours: My Active Orders 11/04/16 22:13 RT Aerosol Therapy [RC] ASDIRECTED 11/04/16 22:19 Chest 2V [CR] Stat 11/04/16 22:39 EKG Documentation Completion [RC] STAT 11/04/16 23:20 Patient Status [ADT] Stat - Assessment/Plan Last 24 Hours: My Active Orders 11/04/16 22:13 RT Aerosol Therapy [RC] ASDIRECTED 11/04/16 22:19 Chest 2V [CR] Stat 11/04/16 22:39 EKG Documentation Completion [RC] STAT 11/04/16 23:20 Patient Status [ADT] Stat
[2016-11-04 22:45] LABS: CHLORIDE,CL 111 mmol/L (98-110); SODIUM,NA 140 mmol/L (136-146)
[2016-11-05] MEDS ORDERED: Ondansetron 4 MG/2 ML SDV IVPUSH PRN (00:15)
[2016-11-05] MEDS ORDERED: Morphine 2 MG/ML Syringe IVPUSH PRN (00:15)
[2016-11-05] MEDS ORDERED: Sodium Chloride 0.9% 2.5 ML Syringe FLUSH PRN (00:16)
[2016-11-05] MEDS ORDERED: Sodium Chloride 0.9% 10 ML Syringe FLUSH PRN (00:16)
[2016-11-05 09:00] VITALS: BP 103/60
--- NOTE | 2016-11-05 09:29 | PCM.HP ---
[id number] [id number] Service: 11/05/16 Admit Problem/Dx: Admission Diagnosis/Problem Admission Diagnosis/Problem Chest pain Source of Information: Patient, Family History Limitations: Reports: No Limitations - History of Present Illness Initial Comments - Free Text/Narative: Please not this document is the admission as well as discharge summary for patient. 75 yo male admitted 11/04/16 for atypical chest pain with pmh of bronchial asthma. 75 yo male who presented to the ED for atypical chest pain on 11/04/16. Patient states that around 5 PM on 11/04/16 while working he began to have substernal chest pain. There was some radiation to right side of chest but no radition to the arm or jaw. The episode lasted approximatly 2 minutes. Pain was constant, sharp, 8/10. He has had similar pain before. He reported no associated nausea , vomiting, diaphoresis, or palpitations. Patient does have nitro but did not use this and pain was relieved on its own with rest. He has been followed by cardiology and states that he had a heart cath in Jun [address] Melendez, [facility], that showed "less than 50% stenosis" as per . No intervention was done at that time. He has had episodes of bradycardia and has seen, Dr. Perry, cardiolgist [facility], who has done a Holter monitor as well as NM stress test. Stress test showed mildly decreased perfusion along inferior wall and apex, fixed, however a tiney area of mycocardial ischemia was not excluded. No available results for Holter monitor. Patient has a history of bronchial asthma and sees Dr. Beckwith, pier hand helper [facility]. He does take inhalers for this but reported no sob with episode. Patient does have an appointment with his pier hand helper on 11/06/16. In ED, CXR, CBC, and CMP were unremarkable. Inital troponin was neg and ECG showed no signs of acute ischemia. Patient was admitted for serial troponins and telemetry monitoring overnight. Patient did well overnight with no further episodes of chest pain. Serial troponins were negative. Dr. Perry, learning disabilities teacher, who patient has seen in the past did consult and see the patient. He felt that chest pain was mostly likely not cardiac in origen and could be related to his bronchial asthma. Patient did have PVC"s and he would like patient to have a 48 hr holter monitor which was ordered. He is going to see the patient next week on Wednesday for follow-up. Patient was discharged in good condition with follow-up appointment with Dr. Perry cardiology and Dr. Beckwith, pumonlogist in [place]. Posterior Neck Pain Score (Numeric/FACES): 4 - Related Data Allergies/Adverse Reactions: Allergies Allergy/AdvReac Type Severity Reaction Status Date / Time No Known Allergies Allergy Verified 11/04/16 22:44 Home Medications: Home Meds Albuterol Sulfate 2.5 mg IH Q6H PRN 08/04/16 [History] Aspirin 81 mg PO BRK 08/04/16 [History] Budesonide/Formoterol [Symbicort 160-4.5 MCG] 2 puff INH BID 08/04/16 [History] Calcium Citrate/Vitamin D3 [Calcium Cit-Vit D 315-200] 1 each PO DAILY 08/04/16 [History] Fish Oil/Borage/Flax/Om3,6,9#1 [[place] 3-6-9 1,200 mg Softgel] 1,000 mg PO DAILY 08/04/16 [History] Fluticasone Propionate [Flonase] 2 sprays NASBOTH DAILY PRN 08/04/16 [History] Ibuprofen 200 mg PO Q4H PRN 08/04/16 [History] Ipratropium [Atrovent HFA] 2 puff INH TID 08/04/16 [History] Multivitamin [Daily [place]] 1 tab PO DAILY 08/04/16 [History] Vit C/A[place] Ac/Lut/Copper/ZnOx [Preservision Lutein Softgel] 1 tab PO BID [History] Acetaminophen [Tylenol] 500 mg PO DAILY PRN 11/04/16 [History] Albuterol [Ventolin HFA] 2 puff INH DAILY PRN 11/04/16 [History] Lutein 20 mg PO DAILY 11/04/16 [History] Past Medical History - Past Health History Medical/Surgical History: Denies Medical/Surgical History HEENT History: Reports: Impaired Vision Other HEENT History: wears glasses Cardiovascular History: Reports: None Respiratory History: Reports: Asthma Gastrointestinal History: Reports: Chronic Constipation Genitourinary History: Reports: BPH Endocrine/Metabolic History: Reports: None - Infectious Disease History Infectious Disease History: Reports: Chicken Pox, Measles, Mumps, Shingles - Past Surgical History HEENT Surgical History: Reports: Tonsillectomy GI Surgical History: Reports: Hernia, Abdominal Social & Family History - Family History Family Medical History: Noncontributory - Tobacco Use Smoking Status *Q: Never Smoker Used Tobacco, but Quit: Yes Month Tobacco Last Used: 1978 Second Hand Smoke Exposure: No - Caffeine Use Caffeine Use: Reports: Coffee Caffeine Use Comment: 1cup every other day - Recreational Drug Use Recreational Drug Use: No - Living Situation & Occupation Living situation: Reports: Occupation: Retired H&P Review of Systems - Review of Systems: Review Of Systems: See Below General: Denies: Fever, Chills, Malaise, Weakness, Fatigue HEENT: Denies: Headaches, Sore Throat Pulmonary: Denies: Shortness of Breath, Wheezing Cardiovascular: Denies: Chest Pain, Palpitations, Edema, Syncope Gastrointestinal: Denies: Abdominal Pain, Black Stool, Bloody Stool, Diarrhea, Nausea, Vomiting Genitourinary: Denies: Dysuria, Hematuria Musculoskeletal: Denies: Neck Pain, Leg Pain Skin: Denies: Cyanosis Psychiatric: Denies: Confusion Neurological: Denies: Confusion, Dizziness, Headache Hematologic/Lymphatic: Denies: Anemia Exam - Exam Exam: See Below - Vital Signs Vital Signs: Last Vital Signs Temp 36.2 C 11/05/16 08:00 Pulse 58 L 11/05/16 08:00 Resp 19 11/05/16 08:00 BP 103/60 11/05/16 08:00 Pulse Ox 95 11/05/16 08:00 Weight: 86.4 kg - Exam Quality Assessment: DVT Prophylaxis General: Alert, Oriented, Cooperative HEENT: Conjunctiva Clear, EACs Clear, EOMI, Hearing Intact, Mucosa Moist & [place] , Nares Patent, Normal Nasal Septum, Posterior Pharynx Clear, PERRLA Neck: Supple, Trachea Midline, 2 Lungs: Clear to Auscultation, Normal Respiratory Effort Cardiovascular: Regular Rate, Regular Rhythm, Normal S1, Normal S2 Abdomen: Normal Bowel Sounds, Soft. No: Distention, Guarding, Rigidity, Rebound Back Exam: Normal Inspection Extremities: Normal Inspection, Normal Pulses. No: Edema Peripheral Pulses: 2+: Radial (L), Radial (R), Posterior Tibial (L), Posterior Tibial (R), Dorsalis Pedis (L), Dorsalis Pedis (R) Skin: Warm, Dry, Intact Neurological: Cranial Nerves Intact Neuro Extensive - Mental Status: Alert, Oriented x3, Normal Mood/Affect, Normal Cognition Neuro Extensive - Motor, Sensory, Reflexes: CN II-XII Intact Psychiatric: Alert, Normal Affect, Normal Mood - Patient Data Lab Results Last 24 hrs: Laboratory Results - last 24 hr 11/05/16 Range/Units 03:48 Troponin I < 0.10 (0.0-0.29) NG/ML Result Diagrams: 11/04/16 22:00 11/04/16 22:00 *Q Meaningful Use (ADM) - VTE *Q VTE Criteria *Q: - Stroke *Q Stroke Criteria *Q: - AMI *Q AMI Criteria *Q: - Problem List (1) Atypical chest pain SNOMED Code(s): 260810171 ICD Code: R07.89 - OTHER CHEST PAIN Status: Acute Priority: High (2) Asthma SNOMED Code(s): 484229524 ICD Code: J45.909 - UNSPECIFIED ASTHMA, UNCOMPLICATED Status: Chronic Priority: High Qualifiers: Asthma severity: moderate persistent Asthma complication type: uncomplicated Qualified Code(s): J45.40 - Moderate persistent asthma, uncomplicated Problem List Initiated/Reviewed/Updated: Yes Orders Last 24hrs: Active Orders 24 hr Category Date Time Status Notify Provider Consults [RC] ASDIRECTED Care 11/05/16 09:23 Ordered Telemetry Monitoring [Cardiac Monitoring] [RC] Q8H Care 11/05/16 00:14 Active Consult to Physician [CONS] Routine Cons 11/05/16 09:22 Ordered Regular Diet [DIET] Diet 11/05/16 Breakfast Active TROPONIN I [CHEM] Q6H Lab 11/05/16 10:00 Ordered Morphine Med 11/05/16 00:15 Active 2 mg IVPUSH Q3H PRN Ondansetron [Zofran] Med 11/05/16 00:15 Active 4 mg IVPUSH Q3H PRN Sodium Chloride 0.9% [Saline Flush] Med 11/05/16 00:16 Active 10 ml FLUSH ASDIRECTED PRN Sodium Chloride 0.9% [Saline Flush] Med 11/05/16 00:16 Active 2.5 ml FLUSH ASDIRECTED PRN Convert IV to Saline Lock [OM.PC] Routine Oth 11/05/16 00:16 Ordered Medication Orders Morphine Sulfate (Morphine) 2 mg IVPUSH Q3H PRN PRN Reason: Pain Ondansetron HCl (Zofran) 4 mg IVPUSH Q3H PRN PRN Reason: Nausea/Vomiting Sodium Chloride (Saline Flush) 10 ml FLUSH ASDIRECTED PRN PRN Reason: Keep Vein Open Sodium Chloride (Saline Flush) 2.5 ml FLUSH ASDIRECTED PRN PRN Reason: Keep Vein Open Assessment/Plan Comment:: Please not this document is the admission as well as discharge summary for patient. 75 yo male admitted 11/04/16 for atypical chest pain with pmh of bronchial asthma. 75 yo male who presented to the ED for atypical chest pain on 11/04/16. Patient states that around 5 PM on 11/04/16 while working he began to have substernal chest pain. There was some radiation to right side of chest but no radition to the arm or jaw. The episode lasted approximatly 2 minutes. Pain was constant, sharp, 8/10. He has had similar pain before. He reported no associated nausea , vomiting, diaphoresis, or palpitations. Patient does have nitro but did not use this and pain was relieved on its own with rest. He has been followed by cardiology and states that he had a heart cath in Jun [address] Melendez, [facility], that showed "less than 50% stenosis" as per . No intervention was done at that time. He has had episodes of bradycardia and has seen, Dr. Perry, cardiolgist [facility], who has done a Holter monitor as well as NM stress test. Stress test showed mildly decreased perfusion along inferior wall and apex, fixed, however a tiney area of mycocardial ischemia was not excluded. No available results for Holter monitor. Patient has a history of bronchial asthma and sees Dr. Beckwith, pier hand helper [facility]. He does take inhalers for this but reported no sob with episode. Patient does have an appointment with his pier hand helper on 11/06/16. In ED, CXR, CBC, and CMP were unremarkable. Inital troponin was neg and ECG showed no signs of acute ischemia. Patient was admitted for serial troponins and telemetry monitoring overnight. Patient did well overnight with no further episodes of chest pain. Serial troponins were negative. Dr. Perry, learning disabilities teacher, who patient has seen in the past did consult and see the patient. He felt that chest pain was mostly likely not cardiac in [facility] and could be related to his bronchial asthma. Patient did have PVC"s and he would like patient to have a 48 hr holter monitor which was ordered. He is going to see the patient next week on Wednesday for follow-up. Patient was discharged in good condition with follow-up appointment with Dr. Perry cardiology and Dr. Beckwith, pumonlogist in [place]. <Quincy Oleary - Last Filed: 11/05/16 19:14> H&P History of Present Illness - General Admit Problem/Dx: Admission Diagnosis/Problem Admission Diagnosis/Problem Chest pain Exam - Vital Signs Vital Signs: Last Vital Signs Temp 36.2 C 11/05/16 08:00 Pulse 58 L 11/05/16 08:00 Resp 19 11/05/16 08:00 BP 103/60 11/05/16 08:00 Pulse Ox 95 11/05/16 08:00 - Patient Data Lab Results Last 24 hrs: Laboratory Results - last 24 hr 11/05/16 11/05/16 Range/Units 03:48 10:20 Troponin I < 0.10 < 0.10 (0.0-0.29) NG/ML Result Diagrams: 11/04/16 22:00 11/04/16 22:00 *Q Meaningful Use (ADM) - VTE *Q VTE Criteria *Q: - Stroke *Q Stroke Criteria *Q: - AMI *Q AMI Criteria *Q: Orders Last 24hrs: Active Orders 24 hr Category Date Time Status Notify Provider Consults [RC] ASDIRECTED Care 11/05/16 09:23 Active Ready for Discharge [RC] PER UNIT ROUTINE Care 11/05/16 12:36 Active Retail Supervisor Discontinue [Cardiac Monitoring Care 11/05/16 12:22 Active Discontinue] [RC] Click To Edit Telemetry Monitoring [Cardiac Monitoring] [RC] Q8H Care 11/05/16 00:14 Active Consult to Physician [CONS] Routine Cons 11/05/16 09:22 Active Convert IV to Saline Lock [OM.PC] Routine Oth 11/05/16 00:16 Ordered - Free Text/Narrative Note: I have examined the patient. I have discussed findings and treatment plan with resident. I agree with the assessment and plan outlined in the following note.
[2016-11-05] MEDS ORDERED: Albuterol 0.083% 2.5 MG/3 ML Neb Soln INH PRN (09:51)
[2016-11-05] MEDS ORDERED: Albuterol 8 GM Inhaler INH PRN ×2 (09:51→10:58)
[2016-11-05] MEDS ORDERED: Acetaminophen 325 MG Tab PO PRN (09:51)
[2016-11-05] MEDS ORDERED: Fluticasone Propionate Nasal Spray 16 GM Bottle NASBOTH PRN (09:51)
[2016-11-05] MEDS ORDERED: Aspirin 81 MG Tab.Chew PO SCH (10:00)
--- NOTE | 2016-11-05 12:11 | CR ---
EXAM DATE: 11/04/16 PATIENT'S AGE: 75 Patient: DIONNA SORIA Facility: [place], [place] Site . Site : [id number] Study: XRay Chest [id number] 11:13:40 PM Ordering Physician: Virginie Britt Final Report: INDICATION: SOB TECHNIQUE: Chest 2 views COMPARISON: August 04, 2016 FINDINGS: Cardiovascular and mediastinum: Heart size and vasculature are normal in caliber and appearance. Mediastinum is within normal limits. Lungs and pleural spaces: No focal consolidation. No sign of pleural effusion. No pneumothorax. Bones and soft tissues: Degenerative changes. IMPRESSION: No acute cardiopulmonary disease. Dictated by Kin Love MD @ 11/04/2016 11:36:40 PM Dictated by: Kin Love MD @ 11/04/2016 23:36:55 (Electronic Signature) Report Signed by Proxy. [facility]ITALOrlando
[2016-11-05] MEDS ORDERED: Ipratropium 12.9 GM Inhaler INH SCH (14:00)
[2016-11-05] MEDS ORDERED: BUDESONIDE INH SCH (21:00)
[2016-11-05] MEDS ORDERED: FORMOTEROL INH SCH (21:00)
--- NOTE | 2016-11-06 09:24 | CONS ---
DATE OF CONSULTATION: DATE OF : 1940 PRIMARY CARE PHYSICIAN: Aristides Colbert M.D. REASON FOR CONSULTATION: Chest pain. PERTINENT HISTORY: This is a 75-year-old male who has a past medical history of early dementia, history of asthma, former smoker, BPH, recently was seen by me in the clinic for evaluation for the episodes of hypertension, PVCs, palpitation and dizziness. He undergone previous exercise test as well as the 30-day heart monitor as well as we got the record from [facility]. At this time, he presented to the hospital because of the chest pain that started on last night. He stated that his chest pain usually on the right side but at this time it is coming on the left side. It stays there for 2 hours, has some dizziness, shortness of breath as well and a little bit of wheezing, but no fever, no coughing, no leg swelling, no orthopnea. 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 I was asked to see him for ACS rule out. PAST MEDICAL HISTORY: Dementia, BPH, former smoker, history of asthma. SOCIAL HISTORY: Former smoker. Occasional alcohol use, but no drug use. He lives with his . REVIEW OF SYSTEMS: A 12-point review of systems seem to be negative except as indicated in HPI. ALLERGIES: No known drug allergies. PHYSICAL EXAMINATION: VITAL SIGNS: Blood pressure is 107 to 120 over 50 to 60 and the heart rate is 50 to 60, temperature 36.2, O2 saturation 95 on room air. HEENT: Not pale. No jaundice. No JVD. HEART: Normal S1, S2. No murmur. Regular rate and rhythm. LUNGS: Clear. No wheezing. ABDOMEN: Soft, nontender. Bowel sounds present. No hepatosplenomegaly. EXTREMITIES: Legs, no edema. LABORATORY DATA: CBC showed a WBC of 6, hematocrit 38, hemoglobin 13, platelet 160, INR 0.9. Sodium 140, potassium 4.3, chloride 111, bicarb 18, BUN 14, creatinine 1.0. Troponin was negative x3. He also had a recent cardiac workup including coronary angiogram done in March 2016 in [facility] which is nonobstructive CAD very mild and also he had a 30-day heart monitor only showed PVCs. There was one time that it activated because he felt lightheaded and dizzy, but no arrhythmia detected with symptoms and as well as exercise nuclear seemed to be very minimal reversible perfusion defect at the apex, very small area, as well as diaphragmatic attenuation in the inferior wall with normal ejection fraction. However during exercise test, he developed wheezing and is improved by inhalers and this has been noted with the prior exercise as well. ASSESSMENT AND PLAN: This is a 75-year-old male with history of benign prostatic hypertrophy, exercised-induced asthma as well as premature ventricular contractions, lightheaded, low blood pressure episode. He presented to the hospital with chest pain. He had recent cardiac test including exercise test as well as coronary angiogram seem to be nonsignificant. I do not think that his chest pain at this time due to cardiac causes. I think most likely probably related to his asthma and he will see dough raiser tomorrow as an outpatient and one thing I would recommend to do, he already had a 30-day heart monitor however, he would need a 48-hour Holter monitor to see the PVC burden and I will also follow up the patient after he have the 48-hour monitor done and he should be able to go home. LUCIE CARLSON /[id number]
== END 2016-11-05 13:47 | disposition home or self-care (01) ==
LOC: MW.ED 22:03 → MW.MS 23:20
PROVIDERS: ADMIT Internal Medicine; ATTEND Internal Medicine
DX: R07.89 Other chest pain (principal); J45.40 Moderate persistent asthma, uncomplicated; K59.09 Other constipation; N40.0 Benign prostatic hyperplasia without lower urinary tract symptoms; F03.90 Unspecified dementia, unspecified severity, without behavioral disturbance, psychotic disturbance, mood disturbance, and anxiety; I25.10 Atherosclerotic heart disease of native coronary artery without angina pectoris; I49.3 Ventricular premature depolarization; Z87.891 Personal history of nicotine dependence; Z79.82 Long term (current) use of aspirin; Z79.51 Long term (current) use of inhaled steroids; Z79.899 Other long term (current) drug therapy; Z90.89 Acquired absence of other organs; Z98.890 Other specified postprocedural states
CPT/HCPCS: 36415; 71020; 80053; 84484; 85025; 85610; 93005; 99285; A9270; G0378

== ENCOUNTER 2017-05-22 13:09 | Emergency (ER) | payer MEDICARE, OTHER ==
--- NOTE | 2017-05-22 14:26 | EDM.PDOC ---
ED HPI GENERAL MEDICAL PROBLEM - General Chief Complaint: Respiratory Problem Stated Complaint: COUGH, CONGESTION, SHORT OF BREATH Time Seen by Provider: 05/22/17 13:26 Source of Information: Reports: Patient History Limitations: Reports: No Limitations - History of Present Illness INITIAL COMMENTS - FREE TEXT/NARRATIVE: History of present illness: [76-year-old male comes in complaining of intermittent fevers, weakness, and generalized feelings of being unwell.] Review of systems: As per history of present illness and below otherwise all systems reviewed and negative. Past medical history: As per history of present illness and as reviewed below otherwise noncontributory. Surgical history: As per history of present illness and as reviewed below otherwise noncontributory. Social history: No reported history of drug or alcohol abuse. Family history: As per history of present illness and as reviewed below otherwise noncontributory. Physical exam: HEENT: Atraumatic, normocephalic, pupils reactive, negative for conjunctival pallor or scleral icterus, mucous membranes moist, throat clear, neck supple, nontender, trachea midline. Lungs: Clear to auscultation, breath sounds equal bilaterally, chest nontender. Heart: S1S2, regular, negative for clicks, rubs, or JVD. Abdomen: Soft, nondistended, nontender. Negative for masses or hepatosplenomegaly. Negative for costovertebral tenderness. Pelvis: Stable nontender. Genitourinary: Deferred. Rectal: Deferred. Extremities: Atraumatic, negative for cords or calf pain. Neurovascular unremarkable. Neuro: Awake, alert, oriented. Cranial nerves II through XII unremarkable. Cerebellum unremarkable. Motor and sensory unremarkable throughout. Exam nonfocal. All lab values returned within normal limits Diagnostics: [CBC, CMP, chest x-ray, influenza A B, strep] Therapeutics: [IV fluid him a Zofran] Impression: [Viral syndrome] Plan: [Zofran hydrate] Definitive disposition and diagnosis as appropriate pending reevaluation and review of above. Treatments DIRECTOR PRODUCT SAFETY: Reports: Acetaminophen, NSAIDS, Other Medication(s) Other Treatments DIRECTOR PRODUCT SAFETY: nyquel - Related Data Allergies Allergy/AdvReac Type Severity Reaction Status Date / Time No Known Allergies Allergy Verified 11/04/16 22:44 Home Meds: Home Meds Albuterol Sulfate 2.5 mg IH Q6H PRN 08/04/16 [History] Aspirin 81 mg PO BRK 08/04/16 [History] Budesonide/Formoterol [Symbicort 160-4.5 MCG] 2 puff INH BID 08/04/16 [History] Calcium Citrate/Vitamin D3 [Calcium Cit-Vit D 315-200] 1 each PO DAILY 08/04/16 [History] Fish Oil/Borage/Flax/Om3,6,9#1 [B[place]well 3-6-9 1,200 mg Softgel] 1,000 mg PO DAILY 08/04/16 [History] Fluticasone Propionate [Flonase] 2 sprays NASBOTH DAILY PRN 08/04/16 [History] Ibuprofen 200 mg PO Q4H PRN 08/04/16 [History] Ipratropium [Atrovent HFA] 2 puff INH TID 08/04/16 [History] Multivitamin [Daily Aurora] 1 tab PO DAILY 08/04/16 [History] Vit C/Aurora Ac/Lut/Copper/ZnOx [Preservision Lutein Softgel] 1 tab PO BID [History] Acetaminophen [Tylenol] 500 mg PO DAILY PRN 11/04/16 [History] Albuterol [Ventolin HFA] 2 puff INH DAILY PRN 11/04/16 [History] Lutein 20 mg PO DAILY 11/04/16 [History] Past Medical History - Past Health History Medical/Surgical History: Denies Medical/Surgical History HEENT History: Reports: Impaired Vision Other HEENT History: wears glasses Cardiovascular History: Reports: SOB on Exertion, Other (See Below) Other Cardiovascular History: Angiogram for "blockage a few years ago, nosurgery " Respiratory History: Reports: Asthma, SOB Gastrointestinal History: Reports: Chronic Constipation Genitourinary History: Reports: BPH Neurological History: Reports: Other (See Below) Other Neuro History: shakiness, unsure of why, adele hess ordered per Dr. Perry Endocrine/Metabolic History: Reports: None Hematologic History: Reports: None Oncologic (Cancer) History: Reports: Other (See Below) Other Oncologic History: skin cancer Dermatologic History: Reports: Other (See Below) Other Dermatologic History: skin cancer with lesions removed face and ears. - Infectious Disease History Infectious Disease History: Reports: Chicken Pox, Measles, Mumps, Shingles - Past Surgical History HEENT Surgical History: Reports: Tonsillectomy GI Surgical History: Reports: Hernia, Abdominal, Other (See Below) Other GI Surgeries/Procedures: umbilical hernia Dermatological Surgical History: Reports: Skin Biopsy Social & Family History - Family History Family Medical History: Noncontributory - Tobacco Use Smoking Status *Q: Former Smoker Years of Tobacco use: 30 Used Tobacco, but Quit: Yes Month Tobacco Last Used: 1973 Second Hand Smoke Exposure: No - Caffeine Use Caffeine Use: Reports: Coffee, Soda Caffeine Use Comment: 1cup every other day - Recreational Drug Use Recreational Drug Use: No - Living Situation & Occupation Living situation: Reports: Occupation: Retired ED ROS GENERAL - Review of Systems Review Of Systems: See Below (History of present illness) ED EXAM, GENERAL - Physical Exam Exam: See Below (See history of present illness) Course - Vital Signs Last Recorded V/S: Last Vital Signs Temp 36.4 C 05/22/17 13:22 Pulse 80 05/22/17 13:22 Resp 20 05/22/17 13:22 BP 130/64 05/22/17 13:22 Pulse Ox 99 05/22/17 13:22 Departure - Departure Time of Disposition: 16:35 Disposition: Home, Self-Care 01 Condition: Good Clinical Impression: Viral syndrome - Discharge Information Referrals: Aristides Colbert MD [Primary Care Provider] - Additional Instructions: The following information is given to patients seen in the emergency department who are being discharged to home. This information is to outline your options for follow-up care. We provide all patients seen in our emergency department with a follow-up referral. The need for follow-up, as well as the timing and circumstances, are variable depending upon the specifics of your emergency department visit. If you don't have a primary care physician on staff, we will provide you with a referral. We always advise you to contact your personal physician following an emergency department visit to inform them of the circumstance of the visit and for follow-up with them and/or the need for any referrals to a consulting specialist. The emergency department will also refer you to a specialist when appropriate. This referral assures that you have the opportunity for follow-up care with a specialist. All of these measure are taken in an effort to provide you with optimal care, which includes your follow-up. Under all circumstances we always encourage you to contact your private physician who remains a resource for coordinating your care. When calling for follow-up care, please make the office aware that this follow-up is from your recent emergency room visit. If for any reason you are refused follow-up, please contact the [facility] Emergency Department at and asked to speak to the emergency department charge nurse. Rest, hydrate, follow up with primary care in 2-3 days Take medication as directed Return to ED as needed as discussed
[2017-05-22] MEDS ORDERED: Ketorolac 30 MG/ML SDV IVPUSH ONE (14:45)
[2017-05-22] MEDS ORDERED: Ondansetron 4 MG/2 ML SDV IVPUSH ONE (14:45)
[2017-05-22] MEDS ORDERED: Sodium Chloride 0.9% 1,000 ML IV ONE (14:45)
[2017-05-22 15:27] LABS: CHLORIDE,CL 109 mmol/L (98-110); SODIUM,NA 139 mmol/L (136-146)
[2017-05-22 17:01] VITALS: BP 128/68
--- NOTE | 2017-05-24 10:24 | CR ---
EXAM DATE: 05/22/17 PATIENT'S AGE: 76 Patient: DIONNA SORIA Facility: [place], [place] Site . Site : 1940 Study: XRay Chest [id number]/6/[id number] 4:21:51 PM Ordering Physician: Doctor Garcia Final Report: INDICATION: Cough. COMPARISON: 11/04/2016. FINDINGS: PA and lateral views of the chest were obtained. The cardiac silhouette and pulmonary vasculature are within normal limits. The lungs are clear of acute infiltrates. There are degenerative changes in the spine. IMPRESSION: Stable chest x-ray. No evidence of acute pulmonary disease. Dictated by Chuy Saldana MD @ 05/22/2017 4:32:35 PM Dictated by: Chuy Saldana MD @ 05/22/2017 16:32:55 (Electronic Signature) Report Signed by Proxy. [email or web address]
== END 2017-05-22 16:56 | disposition home or self-care (01) ==
LOC: MW.ED 13:09
DX: B34.9 Viral infection, unspecified (principal); J45.909 Unspecified asthma, uncomplicated; Z79.82 Long term (current) use of aspirin; Z79.899 Other long term (current) drug therapy
CPT/HCPCS: 36415; 71046; 80053; 85025; 87081; 87804; 87880; 96361; 96374; 99285; J2405; J7040; 99284

== ENCOUNTER 2019-04-10 16:46 | Emergency (ER) | payer MEDICARE, OTHER ==
[2019-04-10] MEDS ORDERED: Sodium Chloride 0.9% 2.5 ML Syringe FLUSH PRN (17:09)
[2019-04-10] MEDS ORDERED: Sodium Chloride 0.9% 10 ML Syringe FLUSH PRN (17:09)
[2019-04-10 17:14] VITALS: BP 129/69; PULSE 67
--- NOTE | 2019-04-10 17:56 | CR ---
INDICATION: dizziness TECHNIQUE: Chest 1 view. COMPARISON: 05/22/17 FINDINGS: Cardiovascular and mediastinum: Heart size and vasculature are normal in caliber and appearance. Mediastinum is within normal limits. Lungs and pleural space: Lungs are clear. No sign of infiltrate or mass. No sign of pleural effusion. No pneumothorax. Bones and soft tissues: No significant findings. IMPRESSION: Unremarkable chest. Dictated by: Dharmesh Salmon MD @ 04/10/2019 17:54:18 (Electronically Signed)
[2019-04-10 18:00] LABS: BLOOD UREA NITROGEN,BUN 15 mg/dL (7.0-18.0); CARBON DIOXIDE,CO2 23.2 mmol/L (21.0-32.0); CHLORIDE,CL 104 mmol/L (98-107); GLUCOSE RANDOM 106 mg/dL (74-106); POTASSIUM,K 3.8 mmol/L (3.5-5.1); SODIUM,NA 138 mmol/L (136-148)
--- NOTE | 2019-04-10 18:04 | EDM.PDOC ---
ED HPI GENERAL MEDICAL PROBLEM - General Chief Complaint: Genitourinary Problem Stated Complaint: URINE IN BLOOD Time Seen by Provider: 04/10/19 16:56 Source of Information: Reports: Patient, Family History Limitations: Reports: No Limitations - History of Present Illness INITIAL COMMENTS - FREE TEXT/NARRATIVE: HISTORY AND PHYSICAL: History of present illness: Patient is a 78-year-old male who presents to the ED today with concern of blood in his urine over the past 2-3 days. Patient states he has a catheter put in for urinary retention that was placed by Dr. Parker, urology in [place]. Patient states that he has a follow-up appointment April 17 for reevaluation of the catheter as well as potential further workup that may need to be done. Patient states that he started passing clots and as catheter yesterday and early this morning but has not had a clot since. Patient states the pain has been draining appropriately and has not called or clotted off. Patient denies any associated symptoms. Patient has a history of Parkinson's with dementia and denies any other health history. Patient denies fever, chills, chest pain, shortness of breath, or cough. Denies headache, neck stiff ness, change in vision, syncope, or near syncope. Denies nausea, vomiting, abdominal pain, diarrhea, constipation, or dysuria. Has not noted any blood in stool. Patient has been eating and drinking appropriately. Review of systems: As per history of present illness and below otherwise all systems reviewed and negative. Past medical history: As per history of present illness and as reviewed below otherwise noncontributory. Surgical history: As per history of present illness and as reviewed below otherwise noncontributory. Social history: See social history for further information Family history: As per history of present illness and as reviewed below otherwise noncontributory. Physical exam: General: Patient is alert, oriented, and in no acute distress. Patient sitting comfortably on exam table. HEENT: Atraumatic, normocephalic, pupils equal and reactive bilaterally, negative for conjunctival pallor or scleral icterus, mucous membranes moist, TMs normal bilaterally, throat clear, neck supple, nontender, trachea midline. No drooling or trismus noted. No meningeal signs. No hot potato voice noted. Lungs: Clear to auscultation, breath sounds equal bilaterally, chest nontender. Heart: S1S2, regular rate and rhythm without overt murmur Abdomen: Soft, nondistended, nontender. Negative for masses or hepatosplenomegaly. Negative for costovertebral tenderness. Pelvis: Stable nontender. Genitourinary: Urine in bag is nadia color without clots. Rectal: Deferred. Skin: Intact, warm, dry. No lesions or rashes noted. Extremities: Atraumatic, negative for cords or calf pain. Neurovascular unremarkable. Neuro: Awake, alert, oriented. Cranial nerves II through XII unremarkable. Cerebellum unremarkable. Motor and sensory unremarkable throughout. Exam nonfocal. Notes: Dr. Rachel directly involved in patient care. Discussed the importance for follow-up with the urologist. Voices understanding and is agreeable to plan of care. Denies any further questions or concerns at this time. Diagnostics: CBC, CMP, UA, EKG, chest x-ray, troponin Therapeutics: None Prescription: None Impression: Hematuria Urinary Tract Infection Plan: 1. Take medication as prescribed. You can take Tylenol as directed for pain and discomfort. 2. Follow-up with the urologist as scheduled and as discussed. Return to the ED as needed and as discussed. Definitive disposition and diagnosis as appropriate pending reevaluation and review of above. - Related Data Allergies Allergy/AdvReac Type Severity Reaction Status Date / Time No Known Allergies Allergy Verified 11/04/16 22:44 Home Meds: Home Meds Albuterol Sulfate 2.5 mg IH Q6H PRN 08/04/16 [History] Budesonide/Formoterol [Symbicort 160-4.5 MCG] 2 puff INH BID 08/04/16 [History] Fish Oil/Borage/Flax/Om3,6,9 1 [[place] 3-6-9 1,200 mg Softgel] 1,200 mg PO DAILY 08/04/16 [History] Multivitamin [Daily [place]] 1 tab PO DAILY 08/04/16 [History] Albuterol [Ventolin HFA] 2 puff INH Q6H PRN 11/04/16 [History] Lutein 20 mg PO TID 11/04/16 [History] Carbidopa/Levodopa [Carbidopa-Levodopa 25-100 Tab] 1 each PO TID 04/10/19 [ History] Cholecalciferol (Vitamin D3) [Vitamin D3] 50 mcg PO TID 04/10/19 [History] Donepezil [Aricept] 10 mg PO BEDTIME 04/10/19 [History] Finasteride 5 mg PO DAILY 04/10/19 [History] Glucosamine [Glucosamine Sulfate] 1,500 mg PO BEDTIME 04/10/19 [History] LORazepam 0.5 mg PO TID PRN 04/10/19 [History] Memantine [Namenda] 10 mg PO BID 04/10/19 [History] Sennosides/Docusate Sodium [Senna-S] 1 each PO DAILY 04/10/19 [History] Tamsulosin [Tamsulosin 24 Hr] 0.4 mg PO DAILY 04/10/19 [History] Tiotropium [place] [Spiriva Respimat] 2 puff IH DAILY 04/10/19 [History] Past Medical History - Past Health History Medical/Surgical History: Denies Medical/Surgical History HEENT History: Reports: Impaired Vision Other HEENT History: wears glasses Cardiovascular History: Reports: SOB on Exertion, Other (See Below) Other Cardiovascular History: Angiogram for "blockage a few years ago, nosurgery " Respiratory History: Reports: Asthma, SOB Gastrointestinal History: Reports: Chronic Constipation Genitourinary History: Reports: BPH Neurological History: Reports: Other (See Below) Other Neuro History: shakiness, unsure of why, adele hess ordered per Dr. Perry Endocrine/Metabolic History: Reports: None Hematologic History: Reports: None Oncologic (Cancer) History: Reports: Other (See Below) Other Oncologic History: skin cancer Dermatologic History: Reports: Other (See Below) Other Dermatologic History: skin cancer with lesions removed face and ears. - Infectious Disease History Infectious Disease History: Reports: Chicken Pox, Measles, Mumps, Shingles - Past Surgical History HEENT Surgical History: Reports: Tonsillectomy GI Surgical History: Reports: Hernia, Abdominal, Other (See Below) Other GI Surgeries/Procedures: umbilical hernia Dermatological Surgical History: Reports: Skin Biopsy Social & Family History - Family History Family Medical History: Noncontributory - Caffeine Use Caffeine Use: Reports: Coffee, Soda Caffeine Use Comment: 1cup every other day - Living Situation & Occupation Living situation: Reports: Occupation: Retired ED ROS GENERAL - Review of Systems Review Of Systems: Comprehensive ROS is negative, except as noted in HPI. ED EXAM, GENERAL - Physical Exam Exam: See Below (See dictation) Course - Vital Signs Last Recorded V/S: Last Vital Signs Temp 98.0 F 04/10/19 17:12 Pulse 67 04/10/19 17:12 Resp 16 04/10/19 17:12 BP 129/69 04/10/19 17:12 Pulse Ox 96 04/10/19 17:12 - Orders/Labs/Meds Orders: Active Orders 24 hr Category Date Time Status EKG Documentation Completion [RC] STAT Care 04/10/19 17:09 Active CULTURE URINE [RM] Stat Lab 04/10/19 17:58 Ordered Sodium Chloride 0.9% [Saline Flush] Med 04/10/19 17:09 Active 10 ml FLUSH ASDIRECTED PRN Sodium Chloride 0.9% [Saline Flush] Med 04/10/19 17:09 Active 2.5 ml FLUSH ASDIRECTED PRN Saline Lock Insert [OM.PC] Stat Oth 04/10/19 17:09 Ordered Medication Orders Sodium Chloride (Saline Flush) 10 ml FLUSH ASDIRECTED PRN PRN Reason: Keep Vein Open Sodium Chloride (Saline Flush) 2.5 ml FLUSH ASDIRECTED PRN PRN Reason: Keep Vein Open Labs: Laboratory Tests 04/10/19 04/10/19 04/10/19 Range/Units 17:20 17:20 17:20 WBC 3.47 L (4.0-11.0) K/uL RBC 5.27 (4.50-5.90) M/uL Hgb 14.2 (13.0-17.0) g/dL Hct 42.5 (38.0-50.0) % MCV 80.6 (80.0-98.0) fL MCH 26.9 L (27.0-32.0) pg MCHC 33.4 (31.0-37.0) g/dL RDW Std Deviation 39.9 (28.0-62.0) fl RDW Coeff of Jonathon 14 (11.0-15.0) % Plt Count 129 L (150-400) K/uL MPV 9.40 (7.40-12.00) fL Neut % (Auto) 49.7 (48.0-80.0) % Lymph % (Auto) 35.4 (16.0-40.0) % [place] % (Auto) 11.2 (0.0-15.0) % Eos % (Auto) 3.7 (0.0-7.0) % Baso % (Auto) 0.0 (0.0-1.5) % Neut # (Auto) 1.7 (1.4-5.7) K/uL Lymph # (Auto) 1.2 (0.6-2.4) K/uL [place] # (Auto) 0.4 (0.0-0.8) K/uL Eos # (Auto) 0.1 (0.0-0.7) K/uL Baso # (Auto) 0.0 (0.0-0.1) K/uL Nucleated RBC % 0.0 /100WBC Nucleated RBCs # 0 K/uL INR 0.92 Sodium 138 (136-148) mmol/L Potassium 3.8 (3.5-5.1) mmol/L Chloride 104 (98-107) mmol/L Carbon Dioxide 23.2 (21.0-32.0) mmol/L BUN 15 (7.0-18.0) mg/dL Creatinine 0.9 (0.8-1.3) mg/dL Est Cr Clr Drug Dosing TNP Estimated GFR (MDRD) > 60.0 ml/min Glucose 106 (74-106) mg/dL Calcium 8.2 L (8.5-10.1) mg/dL Total Bilirubin 0.3 (0.2-1.0) mg/dL AST 19 (15-37) IU/L ALT 13 L (14-63) IU/L Alkaline Phosphatase 98 (46-116) U/L Troponin I < 0.050 (0.000-0.056) ng/mL Total Protein 7.0 (6.4-8.2) g/dL Albumin 3.6 (3.4-5.0) g/dL Globulin 3.4 (2.6-4.0) g/dL Albumin/Globulin Ratio 1.1 (0.9-1.6) Urine Color Urine Appearance Urine pH (5.0-8.0) Ur Specific [place] (1.001-1.035) Urine Protein (NEGATIVE) mg/dL Urine Glucose (UA) (NEGATIVE) mg/dL Urine Ketones (NEGATIVE) mg/dL Urine Occult Blood (NEGATIVE) Urine Nitrite (NEGATIVE) Urine Bilirubin (NEGATIVE) Urine Urobilinogen (<2.0) EU/dL Ur Leukocyte Esterase (NEGATIVE) Urine RBC (0-2/HPF) Urine WBC (0-5/HPF) Ur Epithelial Cells (NONE-FEW) Amorphous Sediment (NEGATIVE) Urine Bacteria (NEGATIVE) Urine Mucus (NONE-MOD) 04/10/19 Range/Units 17:30 WBC (4.0-11.0) K/uL RBC (4.50-5.90) M/uL Hgb (13.0-17.0) g/dL Hct (38.0-50.0) % MCV (80.0-98.0) fL MCH (27.0-32.0) pg MCHC (31.0-37.0) g/dL RDW Std Deviation (28.0-62.0) fl RDW Coeff of Jonathon (11.0-15.0) % Plt Count (150-400) K/uL MPV (7.40-12.00) fL Neut % (Auto) (48.0-80.0) % Lymph % (Auto) (16.0-40.0) % [place] % (Auto) (0.0-15.0) % Eos % (Auto) (0.0-7.0) % Baso % (Auto) (0.0-1.5) % Neut # (Auto) (1.4-5.7) K/uL Lymph # (Auto) (0.6-2.4) K/uL [place] # (Auto) (0.0-0.8) K/uL Eos # (Auto) (0.0-0.7) K/uL Baso # (Auto) (0.0-0.1) K/uL Nucleated RBC % /100WBC Nucleated RBCs # K/uL INR Sodium (136-148) mmol/L Potassium (3.5-5.1) mmol/L Chloride (98-107) mmol/L Carbon Dioxide (21.0-32.0) mmol/L BUN (7.0-18.0) mg/dL Creatinine (0.8-1.3) mg/dL Est Cr Clr Drug Dosing Estimated GFR (MDRD) ml/min Glucose (74-106) mg/dL Calcium (8.5-10.1) mg/dL Total Bilirubin (0.2-1.0) mg/dL AST (15-37) IU/L ALT (14-63) IU/L Alkaline Phosphatase (46-116) U/L Troponin I (0.000-0.056) ng/mL Total Protein (6.4-8.2) g/dL Albumin (3.4-5.0) g/dL Globulin (2.6-4.0) g/dL Albumin/Globulin Ratio (0.9-1.6) Urine Color YELLOW Urine Appearance SLT CLOUDY Urine pH 6.0 (5.0-8.0) Ur Specific [place] 1.020 (1.001-1.035) Urine Protein TRACE H (NEGATIVE) mg/dL Urine Glucose (UA) NEGATIVE (NEGATIVE) mg/dL Urine Ketones NEGATIVE (NEGATIVE) mg/dL Urine Occult Blood LARGE H (NEGATIVE) Urine Nitrite NEGATIVE (NEGATIVE) Urine Bilirubin NEGATIVE (NEGATIVE) Urine Urobilinogen 0.2 (<2.0) EU/dL Ur Leukocyte Esterase NEGATIVE (NEGATIVE) Urine RBC 100-125 (0-2/HPF) Urine WBC 4-6 (0-5/HPF) Ur Epithelial Cells RARE (NONE-FEW) Amorphous Sediment NOT SEEN (NEGATIVE) Urine Bacteria FEW (NEGATIVE) Urine Mucus LIGHT (NONE-MOD) Meds: Medications Generic Name Dose Route Start Last Admin Trade Name Freq PRN Reason Stop Dose Admin Sodium Chloride 10 ml 04/10/19 17:09 Saline Flush FLUSH ASDIRECTED PRN Keep Vein Open Sodium Chloride 2.5 ml 04/10/19 17:09 Saline Flush FLUSH ASDIRECTED PRN Keep Vein Open Departure - Departure Time of Disposition: 18:03 Disposition: Home, Self-Care 01 Clinical Impression: Hematuria Qualifiers: Hematuria type: unspecified type Qualified Code(s): R31.9 - Hematuria, unspecified Urinary tract infection Qualifiers: Urinary tract infection type: acute cystitis Hematuria presence: with hematuria Qualified Code(s): N30.01 - Acute cystitis with hematuria - Discharge Information Referrals: Paul Pak MD [Primary Care Provider] - Forms: ED Department Discharge Additional Instructions: The following information is given to patients seen in the emergency department who are being discharged to home. This information is to outline your options for follow-up care. We provide all patients seen in our emergency department with a follow-up referral. The need for follow-up, as well as the timing and circumstances, are variable depending upon the specifics of your emergency department visit. If you don't have a primary care physician on staff, we will provide you with a referral. We always advise you to contact your personal physician following an emergency department visit to inform them of the circumstance of the visit and for follow-up with them and/or the need for any referrals to a consulting specialist. The emergency department will also refer you to a specialist when appropriate. This referral assures that you have the opportunity for follow-up care with a specialist. All of these measure are taken in an effort to provide you with optimal care, which includes your follow-up. Under all circumstances we always encourage you to contact your private physician who remains a resource for coordinating your care. When calling for follow-up care, please make the office aware that this follow-up is from your recent emergency room visit. If for any reason you are refused follow-up, please contact the [facility] Emergency Department at and asked to speak to the emergency department charge nurse. [facility] [address] [place], [place] [id number] [address] [address] 1. Take medication as prescribed. You can take Tylenol as directed for pain and discomfort. 2. Follow-up with the urologist as scheduled and as discussed. Return to the ED as needed and as discussed. - My Orders Last 24 Hours: My Active Orders 04/10/19 17:09 EKG Documentation Completion [RC] STAT Sodium Chloride 0.9% [Saline Flush] 10 ml FLUSH ASDIRECTED PRN Sodium Chloride 0.9% [Saline Flush] 2.5 ml FLUSH ASDIRECTED PRN Saline Lock Insert [OM.PC] Stat 04/10/19 17:58 CULTURE URINE [RM] Stat - Assessment/Plan Last 24 Hours: My Active Orders 04/10/19 17:09 EKG Documentation Completion [RC] STAT Sodium Chloride 0.9% [Saline Flush] 10 ml FLUSH ASDIRECTED PRN Sodium Chloride 0.9% [Saline Flush] 2.5 ml FLUSH ASDIRECTED PRN Saline Lock Insert [OM.PC] Stat 04/10/19 17:58 CULTURE URINE [RM] Stat
== END 2019-04-10 18:35 | disposition home or self-care (01) ==
LOC: MW.ED 16:46
DX: R31.9 Hematuria, unspecified (principal); N39.0 Urinary tract infection, site not specified; J45.909 Unspecified asthma, uncomplicated; N40.0 Benign prostatic hyperplasia without lower urinary tract symptoms; Z79.899 Other long term (current) drug therapy; Z85.828 Personal history of other malignant neoplasm of skin
CPT/HCPCS: 71045; 71045-26; 80053; 81001; 84484; 85025; 85610; 87086; 93005; 99283; 99283-25

== ENCOUNTER 2020-02-25 19:12 | Emergency (ER) | payer MEDICARE, OTHER ==
[2020-02-25] MEDS ORDERED: Albuterol/Ipratropium 3.0-0.5 MG/3 ML Neb Soln NEB ONE ×2 (19:31→22:39)
[2020-02-25] MEDS ORDERED: methylPREDNISolone Sodium Succinate 125 MG/2 ML SDV IVPUSH ONE (19:31)
[2020-02-25] MEDS ORDERED: Sodium Chloride 0.9% 10 ML Syringe FLUSH PRN (19:31)
[2020-02-25] MEDS ORDERED: Sodium Chloride 0.9% 2.5 ML Syringe FLUSH PRN (19:31)
--- NOTE | 2020-02-25 19:49 | EDM.PDOC ---
ED HPI GENERAL MEDICAL PROBLEM - General Chief Complaint: Respiratory Problem Stated Complaint: SHORT OF BREATH, WHEEZING, COLD Time Seen by Provider: 02/25/20 19:24 - History of Present Illness INITIAL COMMENTS - FREE TEXT/NARRATIVE: HISTORY AND PHYSICAL: History of present illness: This is a 79-year-old gentleman with a history significant for COPD, negative history of hypertension, diabetes, liver, kidney, stroke, CAD, CHF who presents the ER today secondary to right-sided sharp chest pain, increased cough with increased sputum production, shortness of breath, increased wheezing x1 day. Patient denies any prior history of PE or DVT. Patient denies any recent fevers, shakes, chills, nausea, vomiting, diarrhea, dysuria, frequency, urgency, lower extremity edema. Patient's family is at bedside assisting with history. Patient reports that he has had history of pneumonia in the past and has required admission for it but has not had any quite some time. Patient reports that he recently had a coronavirus test which was negative approximate 1 week ago. Patient has no known drug allergies. Patient has a history of tobacco use but has been negative for approximately 45 years. Review of systems: As per history of present illness and below otherwise all systems reviewed and negative. Past medical history: As per history of present illness and as reviewed below otherwise noncontributory. Surgical history: As per history of present illness and as reviewed below otherwise noncontributory. Social history: No reported history of drug or alcohol abuse. Family history: As per history of present illness and as reviewed below otherwise noncontributory. Physical exam: Well-developed well-nourished 79-year-old gentleman who appears to be in no acute distress. Patient's pulse ox is 98% on room air. Patient does appear to be slightly tachypneic but is able speak in full sentences without any difficulty. Patient appears comfortable. HEENT: Atraumatic, normocephalic, pupils reactive, negative for conjunctival pallor or scleral icterus, mucous membranes moist, throat clear, neck supple, nontender, trachea midline. Lungs: Clear to auscultation, breath sounds equal bilaterally, chest nontender. Heart: S1S2, regular, negative for JVD. Abdomen: Soft, nondistended, nontender. Negative for masses or hepatosplenomegaly. Negative for costovertebral tenderness. Pelvis: Stable nontender. Genitourinary: Deferred. Rectal: Deferred. Extremities: Atraumatic, negative for cords or calf pain. Neurovascular unremarkable. No lower extremity edema Neuro: Awake, alert, oriented. Cranial nerves II through XII unremarkable. Cerebellum unremarkable. Motor and sensory unremarkable throughout. Exam nonfocal. Diagnostics: CBC, CMP, D-dimer, chest x-ray, CTA of chest Therapeutics: DuoNeb x2, Solu-Medrol Assessment and plan: This is a 79-year-old gentleman who presents ER today complaining of sharp pleuritic right-sided chest wall pain x1 day with increased cough. Patient has a history significant for COPD. In the ER we will check basic labs including a CBC, CMP, troponin, d-dimer. Patient will get a CTA of his chest given his acute onset of right-sided chest wall pain and age. Patient will get Solu- Medrol as well as a DuoNeb for empiric treatment of COPD and will get a chest x- ray as well. Patient's EKG did not reveal any evidence of acute ischemia or acute abnormalities. 10:55 PM: Patient has been reevaluated multiple times in the ED. Patient currently reports he feels much improved after the albuterol treatment and Solu- Medrol. When asked how he felt, the patient reports "I feel ready to go home now ". Patient's family at bedside he reports that he looks much improved. Patient does have a nebulizer treatment at home but had not utilized any prior to coming to the ED. Patient CTA did not reveal any evidence of PE. The concerning lesion that was noted on the chest x-ray is not identified on the CT scan of the chest. Patient will be given a second DuoNeb treatment and will be reevaluated for discharged home with p.o. steroids. Reassessment at the time of disposition demonstrates that the patient is in no acute distress. The patient has remained stable throughout the entire ED visit and is without objective evidence for acute process requiring urgent intervention or hospitalization. The patient is stable for discharge, counseling is provided as documented above, discussed symptomatic treatment and specific conditions for return. I have spoken with the patient/caregiver and discussed todays findings, in addition to providing specific details for the plan of care. Questions are answered and there is agreement with the plan. Definitive disposition and diagnosis as appropriate pending reevaluation and review of above. Right Upper Chest Pain Score (Numeric/FACES): 5 - Related Data Allergies Allergy/AdvReac Type Severity Reaction Status Date / Time No Known Allergies Allergy Verified 02/25/20 20:24 Home Meds: Home Meds Albuterol Sulfate 2.5 mg IH Q6H PRN 08/04/16 [History] Budesonide/Formoterol [Symbicort 160-4.5 MCG] 2 puff INH BID 08/04/16 [History] Fish Oil/Borage/Flax/Om3,6,9 1 [[place] 3-6-9 1,200 mg Softgel] 1,200 mg PO DAILY 08/04/16 [History] Multivitamin [Daily [place]] 1 tab PO DAILY 08/04/16 [History] Albuterol [Ventolin HFA] 2 puff INH Q6H PRN 11/04/16 [History] Lutein 20 mg PO TID 11/04/16 [History] Carbidopa/Levodopa [Carbidopa-Levodopa 25-100 Tab] 1 each PO TID 04/10/19 [History] Cholecalciferol (Vitamin D3) [Vitamin D3] 50 mcg PO TID 04/10/19 [History] Donepezil [Aricept] 10 mg PO BEDTIME 04/10/19 [History] Finasteride 5 mg PO DAILY 04/10/19 [History] Glucosamine [Glucosamine Sulfate] 1,500 mg PO BEDTIME 04/10/19 [History] LORazepam 0.5 mg PO TID PRN 04/10/19 [History] Memantine [Namenda] 10 mg PO BID 04/10/19 [History] Sennosides/Docusate Sodium [Senna-S] 1 each PO DAILY 04/10/19 [History] Tamsulosin [Tamsulosin 24 Hr] 0.4 mg PO DAILY 04/10/19 [History] Tiotropium [place] [Spiriva Respimat] 2 puff IH DAILY 04/10/19 [History] predniSONE [Prednisone] 50 mg PO DAILY #5 tablet 02/25/20 [Rx] Past Medical History - Past Health History Medical/Surgical History: Denies Medical/Surgical History HEENT History: Reports: Impaired Vision Other HEENT History: wears glasses Cardiovascular History: Reports: SOB on Exertion, Other (See Below) Other Cardiovascular History: Angiogram for "blockage a few years ago, nosurgery" Respiratory History: Reports: Asthma, SOB Gastrointestinal History: Reports: Chronic Constipation Genitourinary History: Reports: BPH, Retention, Urinary Neurological History: Reports: Other (See Below) Other Neuro History: shakiness, unsure of why, adele hess ordered per Dr. Perry Endocrine/Metabolic History: Reports: None Hematologic History: Reports: None Oncologic (Cancer) History: Reports: Other (See Below) Other Oncologic History: skin cancer Dermatologic History: Reports: Other (See Below) Other Dermatologic History: skin cancer with lesions removed face and ears. - Infectious Disease History Infectious Disease History: Reports: Chicken Pox, Measles, Mumps, Shingles - Past Surgical History HEENT Surgical History: Reports: Tonsillectomy GI Surgical History: Reports: Hernia, Abdominal, Other (See Below) Other GI Surgeries/Procedures: umbilical hernia Dermatological Surgical History: Reports: Skin Biopsy Social & Family History - Family History Family Medical History: Noncontributory - Caffeine Use Caffeine Use: Reports: Coffee, Soda Caffeine Use Comment: 1cup every other day - Living Situation & Occupation Living situation: Reports: Occupation: Retired ED ROS GENERAL - Review of Systems Review Of Systems: See Below ED EXAM, GENERAL - Physical Exam Exam: See Below EKG INTERPRETATION EKG Interpretation Comments: EKG: Normal sinus bradycardia heart rate of [address]-T wave abnormalities Normal QRS axis No evidence of ST elevation [place] As interpreted by ER physician: Ace Course - Vital Signs Last Recorded V/S: Last Vital Signs Temp 96.6 F L 02/25/20 19:19 Pulse 59 L 02/25/20 21:59 Resp 21 H 02/25/20 21:59 BP 144/75 H 02/25/20 19:19 Pulse Ox 96 02/25/20 21:59 - Orders/Labs/Meds Orders: Active Orders 24 hr Category Date Time Status EKG 12 Lead [EKG Documentation Completion] [RC] STAT Care 02/25/20 20:12 Active CORONAVIRUS COVID-19 PCR PHL Stat Lab 02/25/20 20:20 Received Sodium Chloride 0.9% [Saline Flush] Med 02/25/20 19:31 Active 10 ml FLUSH ASDIRECTED PRN Sodium Chloride 0.9% [Saline Flush] Med 02/25/20 19:31 Active 2.5 ml FLUSH ASDIRECTED PRN Saline Lock Insert [OM.PC] Stat Oth 02/25/20 19:31 Ordered Medication Orders Sodium Chloride (Saline Flush) 10 ml FLUSH ASDIRECTED PRN PRN Reason: Keep Vein Open Last Admin: 02/25/20 19:46 Dose: 10 ml Documented by: JORDAN Sodium Chloride (Saline Flush) 2.5 ml FLUSH ASDIRECTED PRN PRN Reason: Keep Vein Open Last Admin: 02/25/20 19:46 Dose: 2.5 ml Documented by: JORDAN Labs: Laboratory Tests 02/25/20 02/25/20 02/25/20 Range/Units 19:26 19:26 19:26 WBC 4.38 (4.0-11.0) K/uL RBC 5.60 (4.50-5.90) M/uL Hgb 15.5 (13.0-17.0) g/dL Hct 45.5 (38.0-50.0) % MCV 81.3 (80.0-98.0) fL MCH 27.7 (27.0-32.0) pg MCHC 34.1 (31.0-37.0) g/dL RDW Std Deviation 42.4 (28.0-62.0) fl RDW Coeff of Jonathon 14 (11.0-15.0) % Plt Count 155 (150-400) K/uL MPV 8.90 (7.40-12.00) fL Neut % (Auto) 44.9 L (48.0-80.0) % Lymph % (Auto) 40.2 H (16.0-40.0) % [place] % (Auto) 12.6 (0.0-15.0) % Eos % (Auto) 2.1 (0.0-7.0) % Baso % (Auto) 0.2 (0.0-1.5) % Neut # (Auto) 2.0 (1.4-5.7) K/uL Lymph # (Auto) 1.8 (0.6-2.4) K/uL [place] # (Auto) 0.6 (0.0-0.8) K/uL Eos # (Auto) 0.1 (0.0-0.7) K/uL Baso # (Auto) 0.0 (0.0-0.1) K/uL Nucleated RBC % 0.0 /100WBC Nucleated RBCs # 0 K/uL D-Dimer, Quantitative 0.34 (0.0-0.50) mg/L FEU Sodium 140 (136-148) mmol/L Potassium 3.4 L (3.5-5.1) mmol/L Chloride 106 (98-107) mmol/L Carbon Dioxide 22.6 (21.0-32.0) mmol/L BUN 12 (7.0-18.0) mg/dL Creatinine 0.9 (0.8-1.3) mg/dL Est Cr Clr Drug Dosing 79.54 mL/min Estimated GFR (MDRD) > 60.0 ml/min Glucose 90 (74-106) mg/dL Calcium 9.0 (8.5-10.1) mg/dL Total Bilirubin 0.6 (0.2-1.0) mg/dL AST 30 (15-37) IU/L ALT 28 (14-63) IU/L Alkaline Phosphatase 94 (46-116) U/L Troponin I < 0.050 (0.000-0.056) ng/mL Total Protein 6.8 (6.4-8.2) g/dL Albumin 3.9 (3.4-5.0) g/dL Globulin 2.9 (2.6-4.0) g/dL Albumin/Globulin Ratio 1.3 (0.9-1.6) SARS CoV-2 RNA Rapid VALENTIN (NEGATIVE) 02/25/20 Range/Units 20:20 WBC (4.0-11.0) K/uL RBC (4.50-5.90) M/uL Hgb (13.0-17.0) g/dL Hct (38.0-50.0) % MCV (80.0-98.0) fL MCH (27.0-32.0) pg MCHC (31.0-37.0) g/dL RDW Std Deviation (28.0-62.0) fl RDW Coeff of Jonathon (11.0-15.0) % Plt Count (150-400) K/uL MPV (7.40-12.00) fL Neut % (Auto) (48.0-80.0) % Lymph % (Auto) (16.0-40.0) % [place] % (Auto) (0.0-15.0) % Eos % (Auto) (0.0-7.0) % Baso % (Auto) (0.0-1.5) % Neut # (Auto) (1.4-5.7) K/uL Lymph # (Auto) (0.6-2.4) K/uL [place] # (Auto) (0.0-0.8) K/uL Eos # (Auto) (0.0-0.7) K/uL Baso # (Auto) (0.0-0.1) K/uL Nucleated RBC % /100WBC Nucleated RBCs # K/uL D-Dimer, Quantitative (0.0-0.50) mg/L FEU Sodium (136-148) mmol/L Potassium (3.5-5.1) mmol/L Chloride (98-107) mmol/L Carbon Dioxide (21.0-32.0) mmol/L BUN (7.0-18.0) mg/dL Creatinine (0.8-1.3) mg/dL Est Cr Clr Drug Dosing mL/min Estimated GFR (MDRD) ml/min Glucose (74-106) mg/dL Calcium (8.5-10.1) mg/dL Total Bilirubin (0.2-1.0) mg/dL AST (15-37) IU/L ALT (14-63) IU/L Alkaline Phosphatase (46-116) U/L Troponin I (0.000-0.056) ng/mL Total Protein (6.4-8.2) g/dL Albumin (3.4-5.0) g/dL Globulin (2.6-4.0) g/dL Albumin/Globulin Ratio (0.9-1.6) SARS CoV-2 RNA Rapid VALENTIN NEGATIVE (NEGATIVE) Meds: Medications Generic Name Dose Route Start Last Admin Trade Name Freq PRN Reason Stop Dose Admin Sodium Chloride 10 ml 02/25/20 19:31 02/25/20 19:46 Saline Flush FLUSH 10 ml ASDIRECTED PRN Administration Keep Vein Open Sodium Chloride 2.5 ml 02/25/20 19:31 02/25/20 19:46 Saline Flush FLUSH 2.5 ml ASDIRECTED PRN Administration Keep Vein Open Discontinued Medications Generic Name Dose Route Start Last Admin Trade Name Marisol PRN Reason Stop Dose Admin Albuterol/Ipratropium 3 ml 02/25/20 19:31 02/25/20 19:40 Duoneb 3.0-0.5 Mg/3 Ml NEB 02/25/20 19:32 3 ml ONETIME ONE Administration Albuterol/Ipratropium 3 ml 02/25/20 22:39 02/25/20 22:49 Duoneb 3.0-0.5 Mg/3 Ml NEB 02/25/20 22:40 3 ml ONETIME ONE Administration Iopamidol 60 ml 02/25/20 21:40 02/25/20 21:41 Isovue Multipack-370 (76%) IVPUSH 02/25/20 21:41 60 ml ONETIME STA Administration Methylprednisolone Sodium Succinate 125 mg 02/25/20 19:31 02/25/20 19:43 Solu-Medrol IVPUSH 02/25/20 19:32 125 mg ONETIME ONE Administration Departure - Departure Time of Disposition: 22:56 Disposition: Home, Self-Care 01 Condition: Good Clinical Impression: COPD exacerbation - Discharge Information Instructions: Chronic Obstructive Pulmonary Disease, [id number] Referrals: Paul Pak MD [Primary Care Provider] - Forms: ED Department Discharge Additional Instructions: You were seen and evaluated in the emergency room today secondary to your shortness of breath. Your labs are all within normal limits. Your CT scan did not reveal any evidence of cancer or pulmonary embolism. In the ER you were given albuterol and Atrovent as well as steroids with improvement in your breathing. He will be discharged home with a prescription for prednisone as well as instructions to take your nebulizer treatments as directed for returning of your shortness of breath. Please make an appointment to see your family doctor within the next 2 to 3 days for reevaluation. The following information is given to patients seen in the emergency department who are being discharged to home. This information is to outline your options for follow-up care. We provide all patients seen in our emergency department with a follow-up referral. The need for follow-up, as well as the timing and circumstances, are variable depending upon the specifics of your emergency department visit. If you don't have a primary care physician on staff, we will provide you with a referral. We always advise you to contact your personal physician following an emergency department visit to inform them of the circumstance of the visit and for follow-up with them and/or the need for any referrals to a consulting specialist. The emergency department will also refer you to a specialist when appropriate. This referral assures that you have the opportunity for follow-up care with a specialist. All of these measure are taken in an effort to provide you with optimal care, which includes your follow-up. Under all circumstances we always encourage you to contact your private physician who remains a resource for coordinating your care. When calling for follow-up care, please make the office aware that this follow-up is from your recent emergency room visit. If for any reason you are refused follow-up, please contact the [facility] Emergency Department at and asked to speak to the emergency department charge nurse. Sepsis Event Note (ED) - Evaluation Sepsis Screening Result: Possible Sepsis Risk - Focused Exam Vital Signs: Vital Signs Temp Pulse Resp BP Pulse Ox 02/25/20 21:59 59 L 21 H 96 02/25/20 19:19 96.6 F L 51 L 30 H 144/75 H 99 - My Orders Last 24 Hours: My Active Orders 02/25/20 19:31 Sodium Chloride 0.9% [Saline Flush] 10 ml FLUSH ASDIRECTED PRN Sodium Chloride 0.9% [Saline Flush] 2.5 ml FLUSH ASDIRECTED PRN Saline Lock Insert [OM.PC] Stat 02/25/20 20:12 EKG 12 Lead [EKG Documentation Completion] [RC] STAT 02/25/20 20:20 CORONAVIRUS COVID-19 PCR PHL Stat - Assessment/Plan Last 24 Hours: My Active Orders 02/25/20 19:31 Sodium Chloride 0.9% [Saline Flush] 10 ml FLUSH ASDIRECTED PRN Sodium Chloride 0.9% [Saline Flush] 2.5 ml FLUSH ASDIRECTED PRN Saline Lock Insert [OM.PC] Stat 02/25/20 20:12 EKG 12 Lead [EKG Documentation Completion] [RC] STAT 02/25/20 20:20 CORONAVIRUS COVID-19 PCR PHL Stat
[2020-02-25 19:58] LABS: BLOOD UREA NITROGEN,BUN 12 mg/dL (7.0-18.0); CARBON DIOXIDE,CO2 22.6 mmol/L (21.0-32.0); CHLORIDE,CL 106 mmol/L (98-107); GLUCOSE RANDOM 90 mg/dL (74-106); POTASSIUM,K 3.4 mmol/L (3.5-5.1); SODIUM,NA 140 mmol/L (136-148)
--- NOTE | 2020-02-25 20:21 | CR ---
INDICATION: Cough. TECHNIQUE: Chest 1 view COMPARISON: Chest radiograph 04/10/2019. FINDINGS: Possible spiculated mass at the inferior aspect of the right hilum. No focal consolidation, pleural effusion, or pneumothorax. Normal heart size and pulmonary vascularity. IMPRESSION: Possible spiculated mass at the inferior aspect of the right hilum. Consider further evaluation with CT of the chest. Dictated by July Kincaid MD @ Feb 25 2020 8:18PM Signed by Dr. July Kincaid @ Feb 25 2020 8:20PM
[2020-02-25] MEDS ORDERED: Iopamidol 755 MG/ML 500 ML Multipack Bottle IVPUSH STA (21:40)
--- NOTE | 2020-02-25 22:42 | CT ---
HISTORY: Abnormal chest x-ray. Possible mass. TECHNIQUE: CT chest with IV contrast, pulmonary embolism protocol. COMPARISON: Chest x-ray same day. FINDINGS: Pulmonary arteries: No pulmonary embolism. Main pulmonary artery is normal caliber. Lungs: Central airways are patent. Mild pulmonary emphysema. Clustered small nodules in the base of the left lower lobe are unchanged. Some of these nodules are calcified. No airspace consolidation or mass. Scattered mild atelectasis in both lungs. No pleural effusion or pneumothorax. Mediastinum: Ascending aorta is mildly dilated to 3.9 cm, unchanged. Mild aortic atherosclerotic calcifications. Coronary artery calcifications. No pericardial effusion. Lymph nodes: Mildly enlarged right hilar lymph node measures 1.2 cm short axis. No other enlarged lymph nodes. Musculoskeletal: Degenerative changes of the spine. Diffuse idiopathic skeletal hyperostosis. Upper abdomen: Atherosclerotic calcifications. IMPRESSION: 1. No pulmonary embolism. 2. No pulmonary mass to correspond to the finding described on chest x-ray. Mildly enlarged right hilar lymph node may account for right hilar fullness. No other lymphadenopathy. 3. Mild atelectasis in both lungs. Mild pulmonary emphysema. 4. Unchanged mildly dilated ascending thoracic aorta. Please note that all CT scans at this facility use dose modulation, iterative reconstruction, and/or weight-based dosing when appropriate to reduce radiation dose to as low as reasonably achievable. Dictated by Rishi Tomlin MD @ Feb 25 2020 10:32PM Signed by Dr. Rishi Tomlin @ Feb 25 2020 10:40PM
[2020-02-25 23:16] VITALS: BP 123/57; PULSE 66
== END 2020-02-25 23:18 | disposition home or self-care (01) ==
LOC: MW.ED 19:12
DX: J44.1 Chronic obstructive pulmonary disease with (acute) exacerbation (principal); R00.1 Bradycardia, unspecified; N40.1 Benign prostatic hyperplasia with lower urinary tract symptoms; R33.8 Other retention of urine; Z79.899 Other long term (current) drug therapy; Z20.828 Contact with and (suspected) exposure to other viral communicable diseases
CPT/HCPCS: 36415; 71045; 71275; 80053; 84484; 85025; 85379; 93005; 94640; 96374; 99285; J2930; Q9967; U0002; J7620-GY

== ENCOUNTER 2021-05-20 22:05 | Emergency (ER) | payer MEDICARE, OTHER ==
--- NOTE | 2021-05-20 23:34 | EDM.PDOC ---
ED HPI GENERAL MEDICAL PROBLEM - General Chief Complaint: Back Pain or Injury Stated Complaint: FALL/BACK INJURY Time Seen by Provider: 05/20/21 23:06 - History of Present Illness INITIAL COMMENTS - FREE TEXT/NARRATIVE: HISTORY AND PHYSICAL: History of present illness: This an 80-year-old gentleman with a history of dementia who presents ER today secondary to a fall at home when he was getting ready for bed. Patient's r eports that he was try to sit on his bed and she thinks he missed the bed and just fell straight down hitting his back against the dresser. She reports after the fall he was able to stand up and ambulate without difficulty. She denies any loss of consciousness or head injury. Her biggest concern with pain to his back as well as right arm. He did not receive any analgesia prior to arrival to the ED. Upon arrival to the ER and my evaluation, the patient reports that he has no pain or discomfort in his back or arm. He feels well and is not complaining of any pain. reports he has had no recent fevers, shakes, chills, nausea, vomiting, diarrhea, dysuria, frequency, urgency. She reports that he is currently at his baseline mentation. Review of systems: As per history of present illness and below otherwise all systems reviewed and negative. Past medical history: As per history of present illness and as reviewed below otherwise noncontributory. Surgical history: As per history of present illness and as reviewed below otherwise noncontributory. Social history: No reported history of drug abuse. Family history: As per history of present illness and as reviewed below otherwise noncontributory. Physical exam: This patient was seen and evaluated during the 2019 SARS-CoV-2 novel coronavirus pandemic period. Community viral transmission is ongoing at time of this enc ounter and the emergency department is operating under pandemic response procedures. Constitutional: Patient is oriented to person, place, and time. Appears well- developed and well-nourished. No distress. HEENT: Moist mucous membranes Head: Normocephalic and atraumatic Eyes: Right eye exhibits no discharge. Left eye exhibits no discharge. No scleral icterus Neck: Normal range of motion. No tracheal deviation present. Cardiovascular: Normal rate and regular rhythm. Pulmonary: Effort normal, no respiratory distress. Abdominal: No distention Musculoskeletal: Normal range of motion Neurologic: Alert and oriented to person, place and time. Skin: Ina, warm and dry. Psychiatric: Normal mood and affect. Behavior is normal. Judgment and thought content normal. Nursing note and vital signs have been reviewed Patient has no C-spine T-spine or L-spine tenderness to palpation. Patient has no left upper or right upper quadrant tenderness to palpation. Patient has no crepitus to palpation to the anterior chest wall. Patient is neurologically intact. Patient does not present with any signs or or symptoms that would be consistent with acute intracranial, intra-abdominal, intrathoracic, or long bone injury. All long bones have been palpated and range of motion been performed and there is no evidence of any acute pathology. Patient's back was palpated pretty aggressively and he has no grimacing or complaints of any pain or discomfort. Patient's right upper extremity is unremarkable without any bruising or deformity. Diagnostics: [] Therapeutics: [] Assessment and plan: 80-year-old with fall who presents ER today secondary to back pain and arm pain which appears to have resolved in the ED. Patient be discharged home with instructions to take [id number] acetaminophen or to take his own Derwood at home if he should start develop any pain. Reassessment at the time of disposition demonstrates that the patient is in no acute distress. The patient has remained stable throughout the entire ED visit and is without objective evidence for acute process requiring urgent intervention or hospitalization. The patient is stable for discharge, counseling is provided as documented above, discussed symptomatic treatment and specific conditions for return. I have spoken with the patient/caregiver and discussed todays findings, in addition to providing specific details for the plan of care. Questions are answered and there is agreement with the plan. Definitive disposition and diagnosis as appropriate pending reevaluation and review of above. - Related Data Allergies Allergy/AdvReac Type Severity Reaction Status Date / Time No Known Allergies Allergy Verified 05/20/21 22:23 Home Meds: Home Meds Albuterol Sulfate 2.5 mg IH Q6H PRN 08/04/16 [History] Budesonide/Formoterol [Symbicort 160-4.5 MCG] 2 puff INH BID 08/04/16 [History] Fish Oil/Borage/Flax/Om3,6,9 1 [[place] 3-6-9 1,200 mg Softgel] 1,200 mg PO DAILY 08/04/16 [History] Multivitamin [Daily [place]] 1 tab PO DAILY 08/04/16 [History] Albuterol [Ventolin HFA] 2 puff INH Q6H PRN 11/04/16 [History] Lutein 20 mg PO TID 11/04/16 [History] Carbidopa/Levodopa [Carbidopa-Levodopa 25-100 Tab] 1 each PO TID 04/10/19 [History] Cholecalciferol (Vitamin D3) [Vitamin D3] 50 mcg PO TID 04/10/19 [History] Donepezil [Aricept] 10 mg PO BEDTIME 04/10/19 [History] Finasteride 5 mg PO DAILY 04/10/19 [History] LORazepam 0.5 mg PO TID PRN 04/10/19 [History] Memantine [Namenda] 10 mg PO BID 04/10/19 [History] Sennosides/Docusate Sodium [Senna-S] 1 each PO DAILY 04/10/19 [History] Tamsulosin [Tamsulosin 24 Hr] 0.4 mg PO DAILY 04/10/19 [History] Tiotropium [place] [Spiriva Respimat] 2 puff IH DAILY 04/10/19 [History] Levodopa 1 dose PO DAILY 05/20/21 [History] QUEtiapine [SEROquel] 25 mg PO DAILY 05/20/21 [History] Past Medical History - Past Health History Medical/Surgical History: Denies Medical/Surgical History HEENT History: Reports: Impaired Vision Other HEENT History: wears glasses Cardiovascular History: Reports: SOB on Exertion, Other (See Below) Other Cardiovascular History: Angiogram for "blockage a few years ago, nosurgery" Respiratory History: Reports: Asthma, SOB Gastrointestinal History: Reports: Chronic Constipation Genitourinary History: Reports: BPH, Retention, Urinary Neurological History: Reports: Other (See Below) Other Neuro History: shakiness, unsure of why, adele hess ordered per Dr. Perry Psychiatric History: Reports: Dementia Endocrine/Metabolic History: Reports: None Hematologic History: Reports: None Oncologic (Cancer) History: Reports: Other (See Below) Other Oncologic History: skin cancer Dermatologic History: Reports: Other (See Below) Other Dermatologic History: skin cancer with lesions removed face and ears. - Infectious Disease History Infectious Disease History: Reports: Chicken Pox, Measles, Mumps, Shingles - Past Surgical History HEENT Surgical History: Reports: Tonsillectomy GI Surgical History: Reports: Hernia, Abdominal, Other (See Below) Other GI Surgeries/Procedures: umbilical hernia Dermatological Surgical History: Reports: Skin Biopsy Social & Family History - Family History Family Medical History: No Pertinent Family History - Tobacco Use Tobacco Use Status *Q: Former Tobacco User Used Tobacco, but Quit: Yes Month/Year Tobacco Last Used: 30 years - Caffeine Use Caffeine Use: Reports: Coffee, Soda Caffeine Use Comment: 1cup every other day - Recreational Drug Use Recreational Drug Use: No - Living Situation & Occupation Living situation: Reports: Occupation: Retired ED ROS GENERAL - Review of Systems Review Of Systems: See Below ED EXAM, GENERAL - Physical Exam Exam: See Below Course - Vital Signs Last Recorded V/S: Last Vital Signs Temp 96.8 F L 05/20/21 22:28 Pulse 66 05/20/21 22:28 Resp 17 05/20/21 22:28 BP 110/51 L 05/20/21 22:28 Pulse Ox 95 05/20/21 22:28 Departure - Departure Time of Disposition: 23:32 Disposition: Home, Self-Care 01 Condition: Good Clinical Impression: Fall in elderly patient, Back pain, acute, Right arm pain - Discharge Information Instructions: Fall Prevention in the Home, Adult, [id number], Acute Back Pain, Adult Additional Instructions: You were seen and evaluated in the ER today secondary to a recent fall. At this time, your appears to not have any further pain to his back or arm. If he should start developing any pain or discomfort, you can give him his Derwood or acetaminophen to help with his pain. Otherwise please make an appointment to see his PCP within 1 week. The following information is given to patients seen in the emergency department who are being discharged to home. This information is to outline your options for follow-up care. We provide all patients seen in our emergency department with a follow-up referral. The need for follow-up, as well as the timing and circumstances, are variable depending upon the specifics of your emergency department visit. If you don't have a primary care physician on staff, we will provide you with a referral. We always advise you to contact your personal physician following an emergency department visit to inform them of the circumstance of the visit and for follow-up with them and/or the need for any referrals to a consulting specialist. The emergency department will also refer you to a specialist when appropriate. T his referral assures that you have the opportunity for follow-up care with a specialist. All of these measure are taken in an effort to provide you with optimal care, which includes your follow-up. Under all circumstances we always encourage you to contact your private physician who remains a resource for coordinating your care. When calling for follow-up care, please make the office aware that this follow-up is from your recent emergency room visit. If for any reason you are refused follow-up, please contact the [facility] Emergency Department at and asked to speak to the emergency department charge nurse. [facility] [address] [place] [id number] [address] [address] Sepsis Event Note (ED) - Evaluation Sepsis Screening Result: No Definite Risk - Focused Exam Vital Signs: Vital Signs Temp Pulse Resp BP Pulse Ox 05/20/21 22:28 96.8 F L 66 17 110/51 L 95
[2021-05-20 23:44] VITALS: BP 101/53; PULSE 59
== END 2021-05-20 23:40 | disposition home or self-care (01) ==
LOC: MW.ED 22:05
DX: M54.59 Other low back pain (principal); M79.601 Pain in right arm; N40.0 Benign prostatic hyperplasia without lower urinary tract symptoms; Z87.891 Personal history of nicotine dependence; Z79.899 Other long term (current) drug therapy; W19.XXXA Unspecified fall, initial encounter
CPT/HCPCS: 99283

== ENCOUNTER 2021-09-23 16:33 | Emergency (ER) | payer MEDICARE, OTHER ==
[2021-09-23] MEDS ORDERED: Sodium Chloride 0.9% 10 ML Syringe FLUSH PRN (16:46)
[2021-09-23] MEDS ORDERED: Sodium Chloride 0.9% 2.5 ML Syringe FLUSH PRN (16:46)
[2021-09-23] MEDS ORDERED: Morphine 2 MG/ML SYRINGE IVPUSH ONE (16:51)
[2021-09-23] MEDS ORDERED: Ketorolac 30 MG/ML SDV IVPUSH ONE (16:54)
[2021-09-23] MEDS ORDERED: Sodium Chloride 0.9% 1,000 ML IV SCH (17:00)
[2021-09-23] MEDS ORDERED: Sodium Chloride 0.9% 1,000 ML IV STA (17:20)
[2021-09-23 17:36] LABS: BLOOD UREA NITROGEN,BUN 15 mg/dL (7.0-18.0); CARBON DIOXIDE,CO2 24.2 mmol/L (21.0-32.0); CHLORIDE,CL 103 mmol/L (98-107); GLUCOSE RANDOM 87 mg/dL (74-106); LIPASE 116 U/L (73-393); POTASSIUM,K 3.7 mmol/L (3.5-5.1); SODIUM,NA 139 mmol/L (136-148)
[2021-09-23] MEDS ORDERED: Iopamidol 755 MG/ML 500 ML Multipack Bottle IVPUSH ONE (18:56)
[2021-09-23 19:48] VITALS: BP 122/60; PULSE 51
== END 2021-09-23 19:49 | disposition home or self-care (01) ==
LOC: MW.ED 16:33
DX: R10.12 Left upper quadrant pain (principal); Z79.899 Other long term (current) drug therapy; Z20.822 Contact with and (suspected) exposure to COVID-19
CPT/HCPCS: 36415; 74177; 80053; 81003; 83605; 83690; 85025; 93005; 96374; 99284; J1885; J3490; J7030; Q9967; U0002

== ENCOUNTER 2021-12-12 15:04 | Emergency (ER) | payer MEDICARE, OTHER ==
[2021-12-12 15:19] VITALS: BP 114/56; PULSE 55
[2021-12-12 17:33] LABS: ACETAMINOPHEN < 2.0 ug/mL; BLOOD UREA NITROGEN,BUN 12 mg/dL (7.0-18.0); CARBON DIOXIDE,CO2 25.5 mmol/L (21.0-32.0); CHLORIDE,CL 106 mmol/L (98-107); GLUCOSE RANDOM 92 mg/dL (74-106); LIPASE 118 U/L (73-393); POTASSIUM,K 3.6 mmol/L (3.5-5.1); SODIUM,NA 139 mmol/L (136-148)
[2021-12-12 17:35] LABS: ESTIMATED GFR 89 mL/min (>60)
== END 2021-12-12 19:08 | disposition home or self-care (01) ==
LOC: MW.ED 15:04
DX: M54.6 Pain in thoracic spine (principal); R41.0 Disorientation, unspecified; Z20.822 Contact with and (suspected) exposure to COVID-19; Z79.899 Other long term (current) drug therapy; W18.39XA Other fall on same level, initial encounter
CPT/HCPCS: 36415; 70450; 71045; 71250; 72125; 72128; 72170; 80053; 80143; 80179; 80307; 82550; 82947; 83605; 83690; 83735; 84443; 84484; 85025; 85610; 93005; 99285; U0002

== ENCOUNTER 2022-03-14 19:58 | Emergency (ER) | payer MEDICARE, OTHER ==
[2022-03-14] MEDS ORDERED: Sodium Chloride 0.9% 10 ML Syringe FLUSH PRN (20:08)
[2022-03-14] MEDS ORDERED: Sodium Chloride 0.9% 2.5 ML Syringe FLUSH PRN (20:08)
[2022-03-14 20:44] LABS: CARBON DIOXIDE,CO2 25.7 mmol/L (21.0-32.0); POTASSIUM,K 3.8 mmol/L (3.5-5.1)
[2022-03-14 23:04] VITALS: BP 133/77; PULSE 55
== END 2022-03-14 23:03 | disposition home or self-care (01) ==
LOC: MW.ED 19:58
DX: S09.90XA Unspecified injury of head, initial encounter (principal); W18.09XA Striking against other object with subsequent fall, initial encounter
CPT/HCPCS: 36415; 70450; 70450-26; 71045; 71045-26; 80053; 81003; 83735; 84484; 85025; 85610; 93005; 99284

== ENCOUNTER 2022-08-29 12:57 | Emergency (ER) | payer MEDICARE, OTHER ==
[2022-08-29] MEDS ORDERED: LORazepam 2 MG/ML SDV IVPUSH ONE (13:19)
[2022-08-29] MEDS ORDERED: Sodium Chloride 0.9% 2.5 ML Syringe FLUSH PRN (13:19)
[2022-08-29] MEDS ORDERED: Sodium Chloride 0.9% 10 ML Syringe FLUSH PRN (13:19)
[2022-08-29] MEDS ORDERED: Sodium Chloride 0.9% 1,000 ML IV ONE (13:19)
[2022-08-29 15:01] LABS: CARBON DIOXIDE,CO2 26.7 mmol/L (21.0-32.0); POTASSIUM,K 3.8 mmol/L (3.5-5.1)
[2022-08-29 16:43] VITALS: BP 123/66; PULSE 55
== END 2022-08-29 16:43 | disposition home or self-care (01) ==
LOC: MW.ED 12:57
DX: T17.908A Unspecified foreign body in respiratory tract, part unspecified causing other injury, initial encounter (principal); J45.909 Unspecified asthma, uncomplicated; Z79.899 Other long term (current) drug therapy
CPT/HCPCS: 36415; 71045; 80053; 85025; 93005; 96361; 96374; 99285; J2060; J3490; J7030; 93010; 99284

== ENCOUNTER 2024-02-14 15:18 | Emergency (ER) | payer MEDICARE, OTHER ==
[2024-02-14] MEDS ORDERED: Sodium Chloride 0.9% 2.5 ML Syringe FLUSH PRN (15:42)
[2024-02-14] MEDS ORDERED: Sodium Chloride 0.9% 10 ML Syringe FLUSH PRN (15:42)
[2024-02-14 16:01] LABS: BASOPHILS ABSOLUTE AUTO 0.01 K/uL (0.00-0.20); BASOPHILS PERCENT AUTO 0.2 % (0.0-1.0); EOSINOPHILS ABSOLUTE AUTO 0.14 K/uL (0.00-0.45); EOSINOPHILS PERCENT AUTO 2.8 % (0.0-6.0); HEMATOCRIT 41.2 % (42.0-52.0); HEMOGLOBIN 13.7 g/dL (14.0-18.0); IMMATURE GRAN ABSOLUTE AUTO 0.01 K/uL (0.00-0.05); IMMATURE GRAN PERCENT AUTO 0.2 % (0.0-0.4); LYMPHOCYTES ABSOLUTE AUTO 1.64 K/uL (1.00-4.80); LYMPHOCYTES PERCENT AUTO 32.5 % (24.0-44.0); MEAN CORPUSCULAR HEMOGLOBIN 29.2 pg (28.0-32.0); MEAN CORPUSCULAR HGB CONC 33.3 g/dL (32.0-36.0); MEAN CORPUSCULAR VOLUME 87.8 fL (83.0-99.0); MEAN PLATELET VOLUME 9.3 fL (9.4-12.4); MONOCYTES ABSOLUTE AUTO 0.54 K/uL (0.00-0.80); MONOCYTES PERCENT AUTO 10.7 % (0.0-8.0); NEUTROPHILS ABSOLUTE AUTO 2.71 K/uL (1.80-7.70); NEUTROPHILS PERCENT AUTO 53.6 % (41.0-71.0); PLATELET COUNT,PLT 127 K/uL (150-400); RED BLOOD CELL COUNT 4.69 M/uL (4.52-5.90); WHITE BLOOD CELL COUNT,WBC 5.05 K/uL (3.9-11.3)
[2024-02-14 16:13] LABS: INR 1.05 (0.86-1.11)
[2024-02-14 16:36] LABS: LACTIC ACID 2.2 mmol/L (0.4-2.0)
[2024-02-14 16:46] LABS: A/G RATIO 1.2 (0.9-1.6); ALBUMIN 3.3 g/dL (3.4-5.0); BILIRUBIN TOTAL 0.5 mg/dL (0.2-1.0); CALCIUM 8.7 mg/dL (8.5-10.1); CREATININE 0.8 mg/dL (0.8-1.3); EST CRCL DRUG DOSING (CG) 81.34 mL/min; POTASSIUM,K 4.1 mmol/L (3.5-5.1); PROTEIN TOTAL,TP 6.1 g/dL (6.4-8.2)
[2024-02-14] MEDS: Iopamidol 755 MG/ML 500 ML Multipack Bottle IVPUSH STA (17:09)
[2024-02-14 17:38] VITALS: BP 125/60
[2024-02-14] MEDS: Sodium Chloride 0.9% 500 ML IV SCH (17:39)
[2024-02-14 20:03] VITALS: PULSE 47
== END 2024-02-14 20:03 | disposition home or self-care (01) ==
LOC: MW.ED 15:18
DX: S90.31XA Contusion of right foot, initial encounter (principal); S40.021A Contusion of right upper arm, initial encounter; Z79.899 Other long term (current) drug therapy; W19.XXXA Unspecified fall, initial encounter
CPT/HCPCS: 36415; 70450; 71045; 72125; 73060; 73590; 73630; 74177; 80053; 82550; 83605; 83690; 84484; 85025; 85610; 93005; 96360; 99284; J7040; Q9967; 93010